=== PATIENT | male | born 1945 | race Caucasian/White ===

== ENCOUNTER 2019-05-23 12:16 | Inpatient (IN) | payer OTHER ==
[~2019-05-23] VITALS: Ht 175.3 cm; Wt 106.0 kg
[2019-05-23 12:42] LABS: BASOPHILS # (AUTO) 0.1 X10'3 (0-0.2); BASOPHILS % (AUTO) 1.3 % (0-1); EOSINOPHILS # (AUTO) 0.2 X10'3 (0-0.9); EOSINOPHILS % (AUTO) 2.7 % (0-6); HEMATOCRIT 41.1 % (42.0-52.0); HEMOGLOBIN 14.7 g/dl (14.0-17.9); LYMPHOCYTES # (AUTO) 1.1 X10'3 (1.1-4.8); LYMPHOCYTES % (AUTO) 15.3 % (21-51); MEAN CORPUSCULAR HEMOGLOBIN 33.2 PG (27.0-31.0); MEAN CORPUSCULAR HGB CONC 35.7 g/dL (33.0-36.5); MEAN CORPUSCULAR VOLUME 92.9 FL (78-98); MEAN PLATELET VOLUME 6.4 FL (7.4-10.4); MONOCYTES # (AUTO) 0.9 X10'3 (0-0.9); MONOCYTES % (AUTO) 12.2 % (2-12); NEUTROPHILS # (AUTO) 5.2 X10'3 (1.8-7.7); NEUTROPHILS % (AUTO) 68.5 % (42-75); PLATELET COUNT 160 X10'3 (140-440); RED BLOOD COUNT 4.43 X10'6 (4.70-6.10); RED CELL DISTRIBUTION WIDTH 13.5 % (11.5-14.5); WHITE BLOOD COUNT 7.5 X10'3 (4.5-11.0)
[2019-05-23 13:05] LABS: ALANINE AMINOTRANSFERASE 41 U/L (12-78); ALBUMIN 3.9 G/DL (3.4-5.0); ALBUMIN/GLOBULIN RATIO 1.2 (1.1-1.5); ALKALINE PHOSPHATASE 68 IU/L (46-116); ANION GAP 1 (8-16); ASPARTATE AMINO TRANSFERASE 23 U/L (10-37); BILIRUBIN,TOTAL 0.8 MG/DL (0.1-1.0); BLOOD UREA NITROGEN 12 MG/DL (7-18); BUN/CREATININE RATIO 15.6 (5.4-32.0); CALCIUM 8.7 MG/DL (8.5-10.1); CHLORIDE 98 MMOL/L (99-107); CREATININE 0.77 MG/DL (0.60-1.10); GLUCOSE 95 MG/DL (70-104); POTASSIUM 4.5 MMOL/L (3.5-5.1); SODIUM 132 MMOL/L (135-145); TOTAL CARBON DIOXIDE 32.7 MMOL/L (24-32); TOTAL PROTEIN 7.1 G/DL (6.4-8.2); eGFR > 90 ML/MIN
[2019-05-23] MEDS ORDERED: aspirin 81mg tab.chew PO ONE (13:25)
[2019-05-23] MEDS ORDERED: morphine 2 MG/ML inj. syringe IV ONE (13:25)
[2019-05-23] MEDS ORDERED: nitroGLYCERIN 0.4mg/hour patch TD ONE (13:25)
[2019-05-23] MEDS ORDERED: magnesium hydroxide 30ml (MOM) UD suspension PO PRN (13:45)
[2019-05-23] MEDS ORDERED: HYDROcodone/acetaminophen 5mg/325mg tablet PO PRN (13:45)
[2019-05-23] MEDS ORDERED: nitroGLYCERIN 0.4mg SUBLingual tab SL PRN (13:45)
[2019-05-23] MEDS ORDERED: morphine 2 MG/ML inj. syringe IV PRN ×2 (13:45)
[2019-05-23] MEDS ORDERED: ondansetron/PF 4mg/2ml inj IV PRN (13:45)
[2019-05-23] MEDS ORDERED: mag hydrox/Alum hydrox/simeth 30ml oral suspension PO PRN (13:45)
[2019-05-23] MEDS ORDERED: acetaminophen 325mg tablet PO PRN ×2 (13:45)
[2019-05-23] MEDS ORDERED: ATEN100T PO (14:10)
[2019-05-23] MEDS ORDERED: CLIN300C71 PO (14:10)
[2019-05-23] MEDS ORDERED: LOSA50TA64 PO (14:10)
[2019-05-23] MEDS ORDERED: CITA20TA27 PO (14:13)
[2019-05-23] MEDS ORDERED: ASPI-10 PO (14:13)
[2019-05-23] MEDS ORDERED: SIMV20TA PO (14:13)
[2019-05-23] MEDS ORDERED: CHOL100046 PO (14:13)
[2019-05-23] MEDS ORDERED: ALLO300T2 PO (14:13)
[2019-05-23] MEDS ORDERED: ACET-75 PO (14:16)
[2019-05-23 15:11] LABS: D-DIMER 0.58 MG/L FEU (0-0.50)
--- NOTE | 2019-05-23 15:15 | NUR ---
ARRIVED TO ROOM 311 ON ACCE UNIT FROM ER VIA [facility].
--- NOTE | 2019-05-23 15:45 | NUR ---
DR. KOCH ARRIVED FOR CONSULT. ORDERS RECEIVED. ECHO FIDENCIO JEFFRIES FOR TOMORROW, CANCEL LAST 2 TROPONINS LAB DRAWS.
[2019-05-23 15:50] VITALS: BP 131/59
[2019-05-23 16:17] VITALS: BP 162/75
--- NOTE | 2019-05-23 16:44 | NUR ---
Patient in room MED 311. I have received report from JORDAN Strong and had the opportunity to ask questions and assume patient care.
--- NOTE | 2019-05-23 16:44 | NUR ---
REPORT GIVEN TO KELLEE ORTEGA.
--- NOTE | 2019-05-23 17:00 | NUR ---
Reviewed and agree with previous nurse's documentation & physical assessment. Will continue to monitor patient closely.
[2019-05-23 18:00] VITALS: BP 180/86
--- NOTE | 2019-05-23 18:22 | NUR ---
Problems reprioritized. Patient report given, questions answered & plan of care reviewed with JORDAN Nagel.
--- NOTE | 2019-05-23 18:57 | NUR ---
Dr. Mcdonald assessed pt. had the opportunity to review POC. no new orders at the moment. to review med rec so pt can receive scheduled HTN medications.
--- NOTE | 2019-05-23 18:57 | NUR ---
received report from JORDAN Mcdermott
--- NOTE | 2019-05-23 18:57 | NUR ---
PAGER ID: [phone] MESSAGE: just finished report, pt311 Wolf Youngblood dx NSTEMI has been having high systolic throughout AM. current BP 180/86, prev: 173/80. med rec ready for review. thanks. ext. [phone]
[2019-05-23] MEDS ORDERED: allopurinol 300 MG tablet PO SCH (21:00)
[2019-05-23] MEDS ORDERED: non-formulary drug (Acetaminophen 1 TAB) PO PRN (21:40)
[2019-05-23] MEDS ORDERED: clindamycin 150mg capsule PO ONE (21:59)
[2019-05-23] MEDS: losartan 50mg tablet PO SCH (22:22)
[2019-05-23] MEDS: atenolol 50mg tablet PO SCH (22:22)
[2019-05-23 22:37] VITALS: BP 175/73
[2019-05-24] VITALS (21 sets, daily range): BP systolic 126–163; BP diastolic 52–74
[2019-05-24 06:25] LABS: ALBUMIN 3.6 G/DL (3.4-5.0); ANION GAP 8 (8-16); BLOOD UREA NITROGEN 9 MG/DL (7-18); BUN/CREATININE RATIO 11.5 (5.4-32.0); CALCIUM 8.9 MG/DL (8.5-10.1); CHLORIDE 100 MMOL/L (99-107); CHOL/HDL RATIO 2.7 (0.00-4.99); CHOLESTEROL 129 MG/DL (0-200); CREATININE 0.78 MG/DL (0.60-1.10); GLUCOSE 107 MG/DL (70-104); HDL CHOLESTEROL 47 MG/DL (35-60); LDL CHOLESTEROL 75 MG/DL (50-100); POTASSIUM 4.1 MMOL/L (3.5-5.1); SODIUM 134 MMOL/L (135-145); TRIGLYCERIDES 80 MG/DL (20-135); eGFR > 90 ML/MIN
[2019-05-24 07:00] LABS: BASOPHILS % (AUTO) 0.6 % (0-1); EOSINOPHILS # (AUTO) 0.1 X10'3 (0-0.9); EOSINOPHILS % (AUTO) 0.9 % (0-6); HEMATOCRIT 39.1 % (42.0-52.0); HEMOGLOBIN 13.9 g/dl (14.0-17.9); LYMPHOCYTES # (AUTO) 1.2 X10'3 (1.1-4.8); LYMPHOCYTES % (AUTO) 15.5 % (21-51); MEAN CORPUSCULAR HEMOGLOBIN 32.8 PG (27.0-31.0); MEAN CORPUSCULAR HGB CONC 35.4 g/dL (33.0-36.5); MEAN CORPUSCULAR VOLUME 92.7 FL (78-98); MEAN PLATELET VOLUME 6.7 FL (7.4-10.4); MONOCYTES # (AUTO) 0.7 X10'3 (0-0.9); MONOCYTES % (AUTO) 9.7 % (2-12); NEUTROPHILS # (AUTO) 5.5 X10'3 (1.8-7.7); NEUTROPHILS % (AUTO) 73.3 % (42-75); PLATELET COUNT 149 X10'3 (140-440); RED BLOOD COUNT 4.22 X10'6 (4.70-6.10); RED CELL DISTRIBUTION WIDTH 13.5 % (11.5-14.5); WHITE BLOOD COUNT 7.5 X10'3 (4.5-11.0)
[2019-05-24] MEDS ORDERED: aminophylline 250mg/10ml inj. IV PRN (08:00)
[2019-05-24] MEDS ORDERED: enoxaparin 40mg/0.4ml syringe SUBCUT SCH (08:00)
[2019-05-24] MEDS ORDERED: nitroGLYCERIN 0.4mg SUBLingual tab SL PRN (08:00)
[2019-05-24] MEDS ORDERED: regadenoson 0.4mg/5ml syringe IV PRN (08:00)
[2019-05-24] MEDS ORDERED: metoprolol tartrate 1mg/ml inj IV PRN (08:00)
--- NOTE | 2019-05-24 10:45 | NUR ---
Paged Dr. Mcdonald about Stress test result "Re: Kostasdonald, in 311. Lexiscan result is posted. Let me know if he can eat, and what the plan is. thank you, Suzy LEVY [phone]"
[2019-05-24] MEDS: losartan 50mg tablet PO SCH (11:01)
[2019-05-24] MEDS: vitamin D (cholecalciferol) 1,000 unit tablet PO SCH (11:01)
[2019-05-24] MEDS: citalopram 20mg tablet PO SCH (11:01)
[2019-05-24] MEDS: aspirin 81mg tablet.DR PO SCH (11:01)
[2019-05-24] MEDS: atenolol 50mg tablet PO SCH (11:02)
[2019-05-24] MEDS: allopurinol 300 MG tablet PO SCH (11:02)
--- NOTE | 2019-05-24 18:44 | NUR ---
Patient in room MED 311. I have received report from Suzy ORTEGA and had the opportunity to ask questions and assume patient care.
[2019-05-24] MEDS: enoxaparin 100mg/ml syringe SUBCUT SCH (19:35)
[2019-05-24] MEDS: atorvastatin 10mg tablet PO SCH (20:14)
[2019-05-25] VITALS (13 sets, daily range): BP systolic 107–170; BP diastolic 61–86
[2019-05-25 03:21] LABS: ALBUMIN 3.7 G/DL (3.4-5.0); ANION GAP 5 (8-16); BLOOD UREA NITROGEN 13 MG/DL (7-18); BUN/CREATININE RATIO 16.5 (5.4-32.0); CALCIUM 8.8 MG/DL (8.5-10.1); CHLORIDE 98 MMOL/L (99-107); CREATININE 0.79 MG/DL (0.60-1.10); GLUCOSE 96 MG/DL (70-104); POTASSIUM 3.7 MMOL/L (3.5-5.1); SODIUM 134 MMOL/L (135-145); TOTAL CARBON DIOXIDE 30.6 MMOL/L (24-32); eGFR > 90 ML/MIN
[2019-05-25 03:53] LABS: BASOPHILS # (AUTO) 0.1 X10'3 (0-0.2); BASOPHILS % (AUTO) 1.6 % (0-1); EOSINOPHILS # (AUTO) 0.1 X10'3 (0-0.9); EOSINOPHILS % (AUTO) 1.9 % (0-6); HEMATOCRIT 39.9 % (42.0-52.0); HEMOGLOBIN 14.1 g/dl (14.0-17.9); LYMPHOCYTES # (AUTO) 1.4 X10'3 (1.1-4.8); LYMPHOCYTES % (AUTO) 20.2 % (21-51); MEAN CORPUSCULAR HEMOGLOBIN 32.9 PG (27.0-31.0); MEAN CORPUSCULAR HGB CONC 35.3 g/dL (33.0-36.5); MEAN CORPUSCULAR VOLUME 93.3 FL (78-98); MONOCYTES # (AUTO) 0.9 X10'3 (0-0.9); MONOCYTES % (AUTO) 12.2 % (2-12); NEUTROPHILS # (AUTO) 4.5 X10'3 (1.8-7.7); NEUTROPHILS % (AUTO) 64.1 % (42-75); PLATELET COUNT 144 X10'3 (140-440); RED BLOOD COUNT 4.28 X10'6 (4.70-6.10); RED CELL DISTRIBUTION WIDTH 13.5 % (11.5-14.5); WHITE BLOOD COUNT 7.1 X10'3 (4.5-11.0)
[2019-05-25] MEDS ORDERED: normal saline 1000ml 1,000 ML IV SCH ×2 (04:00→14:55)
--- NOTE | 2019-05-25 06:20 | NUR ---
Problems reprioritized. Patient report given, questions answered & plan of care reviewed with Dai Murdock.
--- NOTE | 2019-05-25 06:27 | NUR ---
Patient in room MED 311. I have received report from JORDAN Cabral and had the opportunity to ask questions and assume patient care.
[2019-05-25] MEDS: allopurinol 300 MG tablet PO SCH (07:00)
[2019-05-25] MEDS: citalopram 20mg tablet PO SCH (08:50)
[2019-05-25] MEDS: enoxaparin 100mg/ml syringe SUBCUT SCH (08:50)
[2019-05-25] MEDS: atenolol 50mg tablet PO SCH (08:51)
[2019-05-25] MEDS: vitamin D (cholecalciferol) 1,000 unit tablet PO SCH (08:51)
--- NOTE | 2019-05-25 10:00 | NUR ---
Dr. Gaitan called back regarding patient's medications, with regard to holding his ARB and the low-dose asa. Dr. Gaitan stated that there are no medications are to be held for this patient.
[2019-05-25] MEDS: losartan 50mg tablet PO SCH ×2 (11:44→20:35)
[2019-05-25] MEDS: aspirin 81mg tablet.DR PO SCH (11:44)
[2019-05-25] MEDS ORDERED: iohexol 350 MG/ML 50ML vial IV ONE (13:38)
[2019-05-25] MEDS ORDERED: LIDOcaine 1% (10mg/ml)w/preservative injection 20ml MDV ONE (13:38)
[2019-05-25] MEDS ORDERED: iohexol 350MG/ML 100ml bottle IV ONE (13:38)
[2019-05-25] MEDS ORDERED: fentaNYL/PF 50MCG/1 ML 2ML syringe ONE ×2 (13:48→14:19)
[2019-05-25] MEDS ORDERED: midazolam 2 mg/2 ml injection ONE ×2 (13:48→14:19)
[2019-05-25] MEDS ORDERED: nitroGLYCERIN-Tridil 50MG/D5W 250 ML IV ONE (14:06)
[2019-05-25] MEDS ORDERED: enalaprilat dihydrate 2.5mg/2ml vial IV ONE (14:08)
--- NOTE | 2019-05-25 14:35 | NUR ---
pt. left for heart cath at 1345 and came back on the unit at 1435.
[2019-05-25] MEDS ORDERED: OXAZEpam 15mg capsule PO PRN (14:55)
[2019-05-25] MEDS ORDERED: HYDROcodone/acetaminophen 10/325mg tab PO PRN (14:55)
[2019-05-25] MEDS ORDERED: ondansetron/PF 4mg/2ml inj IV PRN (14:55)
[2019-05-25] MEDS ORDERED: HYDROcodone/acetaminophen 5mg/325mg tablet PO PRN (14:55)
[2019-05-25] MEDS ORDERED: proCHLORperazine 10 MG/2 ml inj IV PRN (14:55)
[2019-05-25] MEDS: amLODIPine 2.5mg tablet PO SCH (15:29)
[2019-05-25] MEDS ORDERED: Insulin Reg/NS 100units/100mL 100 ML IV SCH (15:33)
[2019-05-25] MEDS ORDERED: potassium Cl 20mEq/100mL bag 100 ML IV PRN (15:35)
[2019-05-25] MEDS ORDERED: magnesium 4gm in 100ml NS 100 ML IV PRN (15:35)
[2019-05-25] MEDS ORDERED: insulin glargine (Lantus) pen - multi-dose SQ PRN (15:35)
[2019-05-25] MEDS ORDERED: magnesium 2GM in 50ml NS 50 ML IV PRN (15:35)
[2019-05-25] MEDS ORDERED: potassium Cl 20 mEq SR tablet PO PRN (15:35)
[2019-05-25] MEDS ORDERED: dextrose 50%-water 50ml dispensing syringe IV PRN (15:35)
[2019-05-25] MEDS ORDERED: MESSAGE TO NURSING PO ONE ×4 (15:35)
[2019-05-25 16:16] LABS: PARTIAL THROMBOPLASTIN TIME 36 SECONDS (22-32)
--- NOTE | 2019-05-25 16:30 | NUR ---
Repiratory-pt Spinner, on ACCE rm 311, orders for ABGs and PFTs, still recovering from heart cath. Testing may done during NOC shift, 05/25/19. Thank you, Brady Can RN
--- NOTE | 2019-05-25 18:00 | NUR ---
Patient in room MED 311. I have received report from JT ORTEGA and had the opportunity to ask questions and assume patient care.
--- NOTE | 2019-05-25 18:33 | NUR ---
Problems reprioritized. Patient report given, questions answered & plan of care reviewed with JORDAN Regan.
[2019-05-25] MEDS: atorvastatin 10mg tablet PO SCH (20:35)
[2019-05-26] VITALS (7 sets, daily range): BP systolic 110–166; BP diastolic 61–87
[2019-05-26 00:14] LABS: CLARITY,URINE CLEAR (Clear); COLOR,URINE YELLOW (Yellow); GLUCOSE, URINE NEGATIVE (Neg); KETONES,URINE NEGATIVE (Neg); LEUKOCYTE ESTERASE ,URINE NEGATIVE (Neg); NITRITES, URINE NEGATIVE (Neg); OCCULT BLOOD,URINE TRACE-INTACT (Neg); PROTEIN,URINE NEGATIVE (Neg); UA COLLECTION TYPE CLN CATCH MIDSTREAM; UROBILINOGEN,URINE 0.2 E.U/dL (0.2-1.0)
[2019-05-26 00:42] LABS: RBC,URINE 0-2 /HPF (0-2); WBC,URINE NONE SEEN /HPF (0-4)
[2019-05-26 00:43] LABS: BACTERIA,URINE NONE SEEN /HPF (Neg); MUCUS STRANDS NONE SEEN /LPF (Neg); SQUAMOUS EPITHELIAL CELL,UR FEW /LPF (FEW)
[2019-05-26 05:33] LABS: ALBUMIN 3.3 G/DL (3.4-5.0); ANION GAP 7 (8-16); BLOOD UREA NITROGEN 12 MG/DL (7-18); BUN/CREATININE RATIO 16.7 (5.4-32.0); CALCIUM 8.7 MG/DL (8.5-10.1); CHLORIDE 99 MMOL/L (99-107); CREATININE 0.72 MG/DL (0.60-1.10); GLUCOSE 89 MG/DL (70-104); POTASSIUM 3.6 MMOL/L (3.5-5.1); SODIUM 135 MMOL/L (135-145); TOTAL CARBON DIOXIDE 29.5 MMOL/L (24-32); eGFR > 90 ML/MIN
--- NOTE | 2019-05-26 06:48 | NUR ---
Patient in room MED 311. I have received report from JORDAN Regan and had the opportunity to ask questions and assume patient care.
--- NOTE | 2019-05-26 06:49 | NUR ---
Problems reprioritized. Patient report given, questions answered & plan of care reviewed with Dai ORTEGA.
[2019-05-26 07:07] LABS: BASOPHILS # (AUTO) 0.1 X10'3 (0-0.2); BASOPHILS % (AUTO) 1.2 % (0-1); EOSINOPHILS # (AUTO) 0.1 X10'3 (0-0.9); EOSINOPHILS % (AUTO) 1.2 % (0-6); LYMPHOCYTES # (AUTO) 1.6 X10'3 (1.1-4.8); LYMPHOCYTES % (AUTO) 21.9 % (21-51); MONOCYTES # (AUTO) 0.9 X10'3 (0-0.9); MONOCYTES % (AUTO) 12.1 % (2-12); NEUTROPHILS # (AUTO) 4.6 X10'3 (1.8-7.7); NEUTROPHILS % (AUTO) 63.6 % (42-75); RED CELL DISTRIBUTION WIDTH 13.3 % (11.5-14.5)
[2019-05-26 07:32] LABS: HEMATOCRIT 41.7 % (42.0-52.0); HEMOGLOBIN 14.4 g/dl (14.0-17.9); MEAN CORPUSCULAR VOLUME 99.8 FL (78-98); RED BLOOD COUNT 4.18 X10'6 (4.70-6.10); WHITE BLOOD COUNT 7.4 X10'3 (4.5-11.0)
[2019-05-26 07:33] LABS: MEAN CORPUSCULAR HEMOGLOBIN 34.4 PG (27.0-31.0); MEAN CORPUSCULAR HGB CONC 34.5 g/dL (33.0-36.5); PLATELET COUNT 144 X10'3 (140-440)
[2019-05-26] MEDS: amLODIPine 2.5mg tablet PO SCH (07:45)
[2019-05-26] MEDS: citalopram 20mg tablet PO SCH (07:46)
[2019-05-26] MEDS: aspirin 81mg tablet.DR PO SCH (07:46)
[2019-05-26] MEDS: losartan 50mg tablet PO SCH ×2 (07:46→20:55)
[2019-05-26] MEDS: allopurinol 300 MG tablet PO SCH (07:46)
[2019-05-26] MEDS: vitamin D (cholecalciferol) 1,000 unit tablet PO SCH (07:46)
[2019-05-26] MEDS: atenolol 50mg tablet PO SCH (07:47)
[2019-05-26] MEDS: mupirocin 2% nasal ointment 1gm UD NS SCH ×3 (08:00→20:55)
--- NOTE | 2019-05-26 08:45 | NUR ---
RADIOLOGY PAGED: 311: ANANER - IN ANTHONY READY FOR 2 VIEW :D
[2019-05-26] MEDS ORDERED: MESSAGE TO NURSING PO ONE (10:00)
[2019-05-26 16:51] LABS: ABG BASE EXCESS 0.6 mmol/L (-2.0-3.0); ABG HCO3 24.5 mmol/L (22.0-26.0); ABG OXYGEN SATURATION 94.6 % (95-98); ABG PCO2 (T) 37.4 mmHg (35.0-45.0); ABG PH (T) 7.435 (7.350-7.450); ABG PO2 (T) 69.5 mmHg (83-108); ALLEN'S TEST POSITIVE; FCOHb 1.1 % (0.5-1.5); FMetHb 0.2 % (0.3-1.12); FO2Hb 93.4 % (94-100); TOTAL HEMOGLOBIN 14.5 G/dl (14.0-17.9)
--- NOTE | 2019-05-26 18:47 | NUR ---
Problems reprioritized. Patient report given, questions answered & plan of care reviewed with JORDAN Cabral.
--- NOTE | 2019-05-26 19:24 | NUR ---
Patient in room MED 311. I have received report from Dai ORTEGA and had the opportunity to ask questions and assume patient care.
[2019-05-26] MEDS: atorvastatin 10mg tablet PO SCH (20:55)
--- NOTE | 2019-05-26 21:00 | NUR ---
Administered dose of bactroban to patient. [facility] did not register that it was given although it has a time stamp for the dose administration. Non administered dose in order to clear task list.
[2019-05-27] VITALS (9 sets, daily range): BP systolic 103–180; BP diastolic 53–84
[2019-05-27 05:26] LABS: ALBUMIN 3.5 G/DL (3.4-5.0); ANION GAP 6 (8-16); BLOOD UREA NITROGEN 10 MG/DL (7-18); BUN/CREATININE RATIO 12.5 (5.4-32.0); CALCIUM 8.7 MG/DL (8.5-10.1); CHLORIDE 101 MMOL/L (99-107); GLUCOSE 97 MG/DL (70-104); POTASSIUM 3.6 MMOL/L (3.5-5.1); SODIUM 135 MMOL/L (135-145); TOTAL CARBON DIOXIDE 28.3 MMOL/L (24-32); eGFR > 90 ML/MIN
[2019-05-27 06:33] LABS: BASOPHILS # (AUTO) 0.1 X10'3 (0-0.2); BASOPHILS % (AUTO) 1.2 % (0-1); EOSINOPHILS # (AUTO) 0.1 X10'3 (0-0.9); EOSINOPHILS % (AUTO) 2.2 % (0-6); HEMATOCRIT 37.9 % (42.0-52.0); HEMOGLOBIN 13.7 g/dl (14.0-17.9); LYMPHOCYTES # (AUTO) 1.5 X10'3 (1.1-4.8); LYMPHOCYTES % (AUTO) 24.6 % (21-51); MEAN CORPUSCULAR HEMOGLOBIN 33.3 PG (27.0-31.0); MEAN CORPUSCULAR HGB CONC 36.1 g/dL (33.0-36.5); MEAN CORPUSCULAR VOLUME 92.1 FL (78-98); MEAN PLATELET VOLUME 6.8 FL (7.4-10.4); MONOCYTES # (AUTO) 0.9 X10'3 (0-0.9); NEUTROPHILS # (AUTO) 3.6 X10'3 (1.8-7.7); PLATELET COUNT 138 X10'3 (140-440); RED BLOOD COUNT 4.11 X10'6 (4.70-6.10); RED CELL DISTRIBUTION WIDTH 13.5 % (11.5-14.5); WHITE BLOOD COUNT 6.2 X10'3 (4.5-11.0)
--- NOTE | 2019-05-27 06:42 | NUR ---
Problems reprioritized. Patient report given, questions answered & plan of care reviewed with Pat RN.
[2019-05-27 07:15] LABS: PLATELET ESTIMATE DECREASED; POLYCHROMASIA FEW
[2019-05-27 07:16] LABS: BURR CELLS FEW; SPHEROCYTES FEW
[2019-05-27] MEDS: mupirocin 2% nasal ointment 1gm UD NS SCH (07:41)
[2019-05-27] MEDS: amLODIPine 2.5mg tablet PO SCH (07:41)
[2019-05-27] MEDS: aspirin 81mg tablet.DR PO SCH (07:41)
[2019-05-27] MEDS: vitamin D (cholecalciferol) 1,000 unit tablet PO SCH (07:41)
[2019-05-27] MEDS: losartan 50mg tablet PO SCH ×2 (07:41→19:35)
[2019-05-27] MEDS: citalopram 20mg tablet PO SCH (07:41)
[2019-05-27] MEDS: allopurinol 300 MG tablet PO SCH (07:44)
[2019-05-27] MEDS: atenolol 50mg tablet PO SCH (08:00)
[2019-05-27] MEDS ORDERED: hydrALAZINE 20mg/ml inj. IV PRN (08:25)
[2019-05-27] MEDS ORDERED: vancomycin/NS 1 GM ADD-VANTAGE 250 ML IV ONE (09:35)
[2019-05-27] MEDS ORDERED: cefazolin/dext.iso 2gm/50ml 50 ML IV ONE (09:35)
[2019-05-27] MEDS ORDERED: MESSAGE TO NURSING PO ONE ×3 (09:35→17:11)
--- NOTE | 2019-05-27 10:48 | NUR ---
PHONED ADAM Avila , AND APPRISED HIM THAT PATIENT STATED " HE HAD HIVES AFTER TAKING PENICILLIN." Addendum: 05/27/19 at 1055 by Teresa Farah RN Amended: Links added.
[2019-05-27] MEDS ORDERED: ringers solution, lacted 1,000 ML IV ONE (14:49)
--- NOTE | 2019-05-27 19:01 | NUR ---
Patient in room MED 311. I have received report from Meera RN and had the opportunity to ask questions and assume patient care.
[2019-05-27] MEDS: metoprolol tartrate 12.5mg (1/2 tablet) PO SCH (19:34)
[2019-05-27] MEDS: nitroGLYCERIN 0.4mg SUBLingual tab SL PRN ×2 (19:43→19:55)
[2019-05-27] MEDS ORDERED: mupirocin 2% ointment 22GM NS SCH (20:00)
[2019-05-27] MEDS: atorvastatin 10mg tablet PO SCH (21:03)
[2019-05-27] MEDS ORDERED: metoprolol tartrate 12.5mg (1/2 tablet) PO ONE (21:25)
--- NOTE | 2019-05-27 21:28 | NUR ---
Olegario BOWERS notifed r/t chest pain 05/28. nitro sub leatha administered at 1938 x2. chest pain relieved. BP currently 152/62, HR 67. new order. give additional 12.5 mg metoprolol.
[2019-05-28] VITALS (19 sets, daily range): BP systolic 97–167; BP diastolic 40–72
--- NOTE | 2019-05-28 00:15 | NUR ---
Spoke with Jose in blood bank. Patient's blood products are ready and on hold for surgery in AM.
[2019-05-28] MEDS ORDERED: MESSAGE TO NURSING PO ONE (02:00)
[2019-05-28 02:35] LABS: ALBUMIN 3.6 G/DL (3.4-5.0); ANION GAP 5 (8-16); BLOOD UREA NITROGEN 13 MG/DL (7-18); BUN/CREATININE RATIO 17.8 (5.4-32.0); CALCIUM 9.1 MG/DL (8.5-10.1); CHLORIDE 100 MMOL/L (99-107); CREATININE 0.73 MG/DL (0.60-1.10); GLUCOSE 102 MG/DL (70-104); POTASSIUM 3.6 MMOL/L (3.5-5.1); SODIUM 133 MMOL/L (135-145); TOTAL CARBON DIOXIDE 27.7 MMOL/L (24-32); eGFR > 90 ML/MIN
[2019-05-28 04:23] LABS: BASOPHILS # (AUTO) 0.1 X10'3 (0-0.2); BASOPHILS % (AUTO) 0.9 % (0-1); EOSINOPHILS # (AUTO) 0.2 X10'3 (0-0.9); EOSINOPHILS % (AUTO) 2.7 % (0-6); HEMATOCRIT 40.6 % (42.0-52.0); HEMOGLOBIN 14.6 g/dl (14.0-17.9); LYMPHOCYTES # (AUTO) 1.9 X10'3 (1.1-4.8); LYMPHOCYTES % (AUTO) 28.8 % (21-51); MEAN CORPUSCULAR HEMOGLOBIN 33.4 PG (27.0-31.0); MEAN CORPUSCULAR HGB CONC 35.9 g/dL (33.0-36.5); MEAN CORPUSCULAR VOLUME 93.1 FL (78-98); MEAN PLATELET VOLUME 6.8 FL (7.4-10.4); MONOCYTES # (AUTO) 0.9 X10'3 (0-0.9); MONOCYTES % (AUTO) 13.8 % (2-12); NEUTROPHILS # (AUTO) 3.6 X10'3 (1.8-7.7); NEUTROPHILS % (AUTO) 53.8 % (42-75); PLATELET COUNT 146 X10'3 (140-440); RED BLOOD COUNT 4.36 X10'6 (4.70-6.10); RED CELL DISTRIBUTION WIDTH 13.5 % (11.5-14.5); WHITE BLOOD COUNT 6.7 X10'3 (4.5-11.0)
[2019-05-28] MEDS ORDERED: gabapentin 400mg capsule PO ONE (05:00)
[2019-05-28] MEDS ORDERED: mupirocin 2% nasal ointment 1gm UD NS SCH (05:00)
[2019-05-28] MEDS ORDERED: MALTODEXTRIN/FRUCTOSE 0.68 KCAL/ML LIQUID 296ML BOTTLE PO ONE (05:00)
[2019-05-28] MEDS ORDERED: ROPIVAcaine 0.5% (5mg/ml) 30ml vial ONE (05:18)
[2019-05-28] MEDS ORDERED: sodium bicarbonate (8.4%) inj. 1 MEQ/ML ML ONE (06:00)
[2019-05-28] MEDS ORDERED: albumin (human) 25% 100 ML IV solution IV ONE (06:00)
[2019-05-28] MEDS ORDERED: LORazepam 2 mg/ml vial IV ONE (06:00)
[2019-05-28] MEDS ORDERED: phenylephrine 10mg/ml inj. ONE ×2 (06:00→07:41)
[2019-05-28] MEDS ORDERED: aminocaproic acid 250 MG/1 ML inj. ONE (06:00)
[2019-05-28] MEDS ORDERED: methylPREDNISolone sod succ 1000mg vial ONE (06:00)
[2019-05-28] MEDS ORDERED: magnesium sulf 1 GM/2 ML ONE (06:00)
[2019-05-28] MEDS ORDERED: papaverine 30 mg/ml 2ml inj. ONE (06:00)
[2019-05-28] MEDS ORDERED: famotidine 20mg tablet PO ONE (06:00)
[2019-05-28] MEDS ORDERED: calcium chloride 100 MG/1 ML inj IV ONE (06:00)
[2019-05-28] MEDS ORDERED: potassium Cl 2 mEq/ml inj IV ONE (06:00)
[2019-05-28] MEDS ORDERED: LIDOcaine 2% (20 mg/ml) 5ml cardiac syringe ONE (06:00)
[2019-05-28] MEDS ORDERED: cefazolin/dext.iso 2gm/50ml 50 ML IV ONE (06:00)
[2019-05-28] MEDS ORDERED: vancomycin/NS 1 GM ADD-VANTAGE 250 ML IV ONE (06:00)
[2019-05-28] MEDS ORDERED: heparin 10,000 units/1 ML INJ ONE (06:00)
[2019-05-28] MEDS ORDERED: heparin 1,000 units/ml 10ml inj ONE (06:00)
--- NOTE | 2019-05-28 06:00 | NUR ---
Patient in room MED 311. I have received report from Scott ORTEGA and had the opportunity to ask questions and assume patient care.
[2019-05-28 06:02] LABS: PLATELET ESTIMATE NORMAL; SPHEROCYTES 1+
--- NOTE | 2019-05-28 06:11 | NUR ---
Problems reprioritized. Patient report given, questions answered & plan of care reviewed with Emmanuel ORTEGA.
[2019-05-28] MEDS ORDERED: sevoflurane 250ml liquid IH ONE (06:40)
[2019-05-28] MEDS ORDERED: nitroGLYCERIN in D5W 50mg/250ml (Tridil) infusion IV ONE (06:40)
[2019-05-28] MEDS ORDERED: niCARDipine in NS 40mg/200ml (0.2mg/ml) IVPB IV ONE (06:40)
[2019-05-28] MEDS ORDERED: protamine sulf. 10mg/ml inj. IV ONE (06:40)
--- NOTE | 2019-05-28 06:44 | NUR ---
Pt. ready for CABG. Pt. spoke with OR team this morning and all questions answered. OR team arrived around 620. Pepcid and Ativan given and Vanco started. Pt. left with OR team.
[2019-05-28] MEDS ORDERED: SUFENTANIL CITRATE 50 MCG/ML 2ml ampule IV ONE (06:48)
[2019-05-28] MEDS ORDERED: MIDAZolam 1mg/ml 10ml vial ONE (06:48)
[2019-05-28] MEDS ORDERED: rocuronium 10mg/ml inj IV ONE ×2 (06:58)
[2019-05-28] MEDS ORDERED: LIDOcaine 2% (20mg/ml) 5ml vial ONE (06:58)
[2019-05-28] MEDS ORDERED: propofol inj 20 ML IV ONE (06:58)
[2019-05-28] MEDS: allopurinol 300 MG tablet PO SCH (07:00)
[2019-05-28 07:20] LABS: ABG BASE EXCESS -0.1 mmol/L (-2.0-3.0); ABG HCO3 25.8 mmol/L (22.0-26.0); ABG PCO2 46.5 mmHg (35.0-45.0); ABG PH 7.362 (7.350-7.450); ABG PO2 168.2 mmHg (60.0-100.0); CL (ABG) 101 mmol/L (99-107); FCOHb 1.3 % (0.5-1.5); FMetHb 0.3 % (0.3-1.12); FO2Hb 97.4 % (94-100); GLUCOSE (ABG) 110 mg/dl (70-104); IONIZED CA (ABG) 1.13 mmol/L (1.03-1.32); K (ABG) 3.2 mmol/L (3.3-5.1); NA (ABG) 136 mmol/L (135-145); TOTAL HEMOGLOBIN 14.3 G/dl (14.0-17.9)
[2019-05-28] MEDS ORDERED: ePHEDrine 50MG/ML INJ. ONE (07:40)
[2019-05-28] MEDS ORDERED: heparin 10,000 units/1 ML INJ IR ONE (07:47)
[2019-05-28] MEDS ORDERED: papaverine 30 mg/ml 2ml inj. IA ONE (07:47)
[2019-05-28] MEDS: losartan 50mg tablet PO SCH (08:00)
[2019-05-28] MEDS: aspirin 81mg tablet.DR PO SCH (08:00)
[2019-05-28] MEDS: metoprolol tartrate 12.5mg (1/2 tablet) PO SCH (08:00)
[2019-05-28] MEDS: amLODIPine 2.5mg tablet PO SCH (08:00)
[2019-05-28] MEDS: atenolol 50mg tablet PO SCH (08:00)
[2019-05-28] MEDS: vitamin D (cholecalciferol) 1,000 unit tablet PO SCH (08:00)
[2019-05-28] MEDS: citalopram 20mg tablet PO SCH (08:00)
[2019-05-28 08:15] LABS: ABG BASE EXCESS VENOUS -0.6 mmol/L; ABG HCO3 VENOUS 26.6 mmol/L; ABG PCO2 VENOUS 54.5 mmHg; ABG PO2 VENOUS 42.8 mmHg; CL (ABG) 98 mmol/L (99-107); FCOHb VENOUS 1.4 %; FHHb VENOUS 25.2 %; FMetHb VENOUS 0.4 %; GLUCOSE (ABG) 110 mg/dl (70-104); IONIZED CA (ABG) 1.15 mmol/L (1.03-1.32); K (ABG) 3.5 mmol/L (3.3-5.1); NA (ABG) 132 mmol/L (135-145); TOTAL HEMOGLOBIN 13.8 G/dl (14.0-17.9)
[2019-05-28 08:41] LABS: ABG HCO3 VENOUS 25.7 mmol/L; ABG PCO2 VENOUS 46.5 mmHg; ABG PO2 VENOUS 56.4 mmHg; CL (ABG) 97 mmol/L (99-107); FCOHb VENOUS 0.8 %; FHHb VENOUS 12.7 %; FMetHb VENOUS 0.3 %; FO2Hb VENOUS 86.2 %; GLUCOSE (ABG) 99 mg/dl (70-104); K (ABG) 4.8 mmol/L (3.3-5.1); NA (ABG) 130 mmol/L (135-145); TOTAL HEMOGLOBIN 10.6 G/dl (14.0-17.9)
[2019-05-28 08:46] LABS: ABG HCO3 27.2 mmol/L (22.0-26.0); ABG OXYGEN SATURATION 99.4 % (95-98); ABG PCO2 45.5 mmHg (35.0-45.0); ABG PH 7.395 (7.350-7.450); ABG PO2 417.8 mmHg (60.0-100.0); CL (ABG) 98 mmol/L (99-107); FCOHb 0.9 % (0.5-1.5); FMetHb 0.3 % (0.3-1.12); FO2Hb 98.2 % (94-100); GLUCOSE (ABG) 102 mg/dl (70-104); IONIZED CA (ABG) 0.99 mmol/L (1.03-1.32); K (ABG) 4.6 mmol/L (3.3-5.1); NA (ABG) 129 mmol/L (135-145); TOTAL HEMOGLOBIN 10.7 G/dl (14.0-17.9)
[2019-05-28 09:15] LABS: ABG BASE EXCESS 0.4 mmol/L (-2.0-3.0); ABG OXYGEN SATURATION 99.2 % (95-98); ABG PCO2 40.2 mmHg (35.0-45.0); ABG PH 7.411 (7.350-7.450); ABG PO2 277.8 mmHg (60.0-100.0); CL (ABG) 99 mmol/L (99-107); FCOHb 0.8 % (0.5-1.5); FMetHb 0.3 % (0.3-1.12); FO2Hb 98.1 % (94-100); GLUCOSE (ABG) 113 mg/dl (70-104); IONIZED CA (ABG) 1.04 mmol/L (1.03-1.32); K (ABG) 4.4 mmol/L (3.3-5.1); NA (ABG) 131 mmol/L (135-145); TOTAL HEMOGLOBIN 11.5 G/dl (14.0-17.9)
[2019-05-28 09:41] LABS: ABG BASE EXCESS 2.5 mmol/L (-2.0-3.0); ABG HCO3 26.1 mmol/L (22.0-26.0); ABG PCO2 36.8 mmHg (35.0-45.0); ABG PH 7.469 (7.350-7.450); ABG PO2 246.3 mmHg (60.0-100.0); CL (ABG) 97 mmol/L (99-107); FCOHb 0.6 % (0.5-1.5); FMetHb 0.2 % (0.3-1.12); FO2Hb 98.2 % (94-100); GLUCOSE (ABG) 117 mg/dl (70-104); K (ABG) 4.5 mmol/L (3.3-5.1); NA (ABG) 130 mmol/L (135-145); TOTAL HEMOGLOBIN 10.9 G/dl (14.0-17.9)
[2019-05-28 10:16] LABS: ABG BASE EXCESS VENOUS 1.7 mmol/L; ABG HCO3 VENOUS 26.4 mmol/L; ABG PO2 VENOUS 40.1 mmHg; CL (ABG) 99 mmol/L (99-107); FCOHb VENOUS 1.2 %; FHHb VENOUS 24.3 %; FMetHb VENOUS 0.6 %; FO2Hb VENOUS 73.9 %; GLUCOSE (ABG) 127 mg/dl (70-104); NA (ABG) 132 mmol/L (135-145); TOTAL HEMOGLOBIN 11.9 G/dl (14.0-17.9)
[2019-05-28] MEDS ORDERED: Insulin Reg/NS 100units/100mL 100 ML IV SCH (11:01)
[2019-05-28] MEDS ORDERED: DOPamine 400mg/D5W 250ml 250 ML IV PRN ×2 (11:01→11:13)
[2019-05-28] MEDS ORDERED: nitroGLYCERIN-Tridil 50MG/D5W 250 ML IV PRN (11:01)
[2019-05-28] MEDS ORDERED: niCARDipine-NS 40mg/200ml IVPB 200 ML IV PRN (11:01)
[2019-05-28] MEDS ORDERED: Neutra Phos packet PO PRN (11:05)
[2019-05-28] MEDS ORDERED: sodium phosphate inj. 15 MMOL in dextrose 5%-water 250 ML IV PRN (11:05)
[2019-05-28] MEDS ORDERED: dextrose 50%-water 50ml dispensing syringe IV PRN (11:05)
[2019-05-28] MEDS ORDERED: magnesium citrate 296ml oral solution PO PRN (11:05)
[2019-05-28] MEDS ORDERED: morphine 4 MG/ML inj SYRINge IV PRN ×2 (11:05)
[2019-05-28] MEDS ORDERED: mineral oil 133ml enema RC PRN (11:05)
[2019-05-28] MEDS ORDERED: magnesium hydroxide 30ml (MOM) UD suspension PO PRN (11:05)
[2019-05-28] MEDS ORDERED: HYDROcodone/acetaminophen 10/325mg tab PO PRN ×2 (11:05)
[2019-05-28] MEDS ORDERED: metoclopramide 5 mg/ml inj IV PRN (11:05)
[2019-05-28] MEDS ORDERED: bisacodyl 10mg suppository rectal RC PRN (11:05)
[2019-05-28] MEDS ORDERED: sodium phosphate inj. 30 MMOL in dextrose 5%-water 250 ML IV PRN (11:05)
[2019-05-28] MEDS ORDERED: acetaminophen 325mg tablet PO PRN ×2 (11:05)
[2019-05-28] MEDS ORDERED: insulin glargine (Lantus) pen - multi-dose SQ PRN (11:05)
[2019-05-28] MEDS ORDERED: ondansetron/PF 4mg/2ml inj IV PRN (11:05)
[2019-05-28] MEDS ORDERED: normal saline 250ml IV soln 250 ML IV PRN (11:05)
[2019-05-28] MEDS ORDERED: pantoprazole 40 MG vial IV ONE (11:05)
[2019-05-28] MEDS: albumin (Human) 5% 250ml 250 ML IV PRN ×4 (11:15→19:27)
[2019-05-28] MEDS: sodium chloride 0.45% 1,000 ML IV SCH (11:20)
[2019-05-28 11:35] LABS: BASOPHILS % (AUTO) 0.1 % (0-1); EOSINOPHILS % (AUTO) 0.2 % (0-6); HEMATOCRIT 39.6 % (42.0-52.0); HEMOGLOBIN 14.1 g/dl (14.0-17.9); LYMPHOCYTES # (AUTO) 0.6 X10'3 (1.1-4.8); LYMPHOCYTES % (AUTO) 4.1 % (21-51); MEAN CORPUSCULAR HEMOGLOBIN 33.3 PG (27.0-31.0); MEAN CORPUSCULAR HGB CONC 35.7 g/dL (33.0-36.5); MEAN CORPUSCULAR VOLUME 93.2 FL (78-98); MEAN PLATELET VOLUME 6.7 FL (7.4-10.4); MONOCYTES # (AUTO) 0.5 X10'3 (0-0.9); MONOCYTES % (AUTO) 3.3 % (2-12); NEUTROPHILS # (AUTO) 13.5 X10'3 (1.8-7.7); NEUTROPHILS % (AUTO) 92.3 % (42-75); PLATELET COUNT 127 X10'3 (140-440); RED BLOOD COUNT 4.25 X10'6 (4.70-6.10); RED CELL DISTRIBUTION WIDTH 13.5 % (11.5-14.5); WHITE BLOOD COUNT 14.7 X10'3 (4.5-11.0)
[2019-05-28 11:36] LABS: ABG BASE EXCESS -1.4 mmol/L (-2.0-3.0); ABG HCO3 24.1 mmol/L (22.0-26.0); ABG OXYGEN SATURATION 92.7 % (95-98); ABG PCO2 (T) 43.4 mmHg (35.0-45.0); ABG PH (T) 7.362 (7.350-7.450); ABG PO2 (T) 67.3 mmHg (83-108); FCOHb 0.7 % (0.5-1.5); FMetHb 0.3 % (0.3-1.12); FO2Hb 91.8 % (94-100); PEEP 5 cm H2O; RESPIRATORY RATE 12 b/min; TIDAL VOLUME 650 mL; TOTAL HEMOGLOBIN 14.9 G/dl (14.0-17.9)
[2019-05-28 11:48] LABS: PARTIAL THROMBOPLASTIN TIME 37 SECONDS (22-32)
[2019-05-28 11:51] LABS: ALANINE AMINOTRANSFERASE 32 U/L (12-78); ALBUMIN 3.2 G/DL (3.4-5.0); ALBUMIN/GLOBULIN RATIO 1.4 (1.1-1.5); ALKALINE PHOSPHATASE 44 IU/L (46-116); ANION GAP 8 (8-16); ASPARTATE AMINO TRANSFERASE 51 U/L (10-37); BILIRUBIN,TOTAL 1.3 MG/DL (0.1-1.0); BLOOD UREA NITROGEN 14 MG/DL (7-18); BUN/CREATININE RATIO 17.7 (5.4-32.0); CALCIUM 8.2 MG/DL (8.5-10.1); CHLORIDE 103 MMOL/L (99-107); CREATININE 0.79 MG/DL (0.60-1.10); GLUCOSE 178 MG/DL (70-104); PHOSPHORUS 2.5 MG/DL (2.3-4.5); SODIUM 137 MMOL/L (135-145); TOTAL CARBON DIOXIDE 25.7 MMOL/L (24-32); TOTAL PROTEIN 5.5 G/DL (6.4-8.2); eGFR > 90 ML/MIN
[2019-05-28] MEDS: potassium Cl 20mEq/100mL bag 100 ML IV PRN ×4 (12:17→22:59)
--- NOTE | 2019-05-28 12:31 | NUR ---
CABG Consult: Pt admit w/ multi-vessel heart disease s/p CABG this AM. PO 100% heart healthy diet prior to OR meeting needs. LBM 05/25. Will need CABG ed once stable prior to d/c. Will monitor for diet advancement and additional protein needs post-op. Rec: 1. advance diet per MD to heart healthy 2. monitor for ONS needs post-op 3. routine bowel care post-op 4. CABG ed once stable prior to d/c 5. wt per rx Addendum: 05/28/19 at [address] Amended: Links added.
[2019-05-28] MEDS: gabapentin 300mg capsule PO SCH ×2 (13:06→19:41)
[2019-05-28] MEDS: magnesium 2GM in 50ml NS 50 ML IV PRN ×2 (14:25→19:27)
[2019-05-28] MEDS: ceFAZolin 1GM/D5W- ADD-VANTAGE 50 ML IV SCH (15:56)
[2019-05-28 16:06] LABS: ABG BASE EXCESS -6.7 mmol/L (-2.0-3.0); ABG HCO3 17.8 mmol/L (22.0-26.0); ABG OXYGEN SATURATION 95.8 % (95-98); ABG PCO2 (T) 32.7 mmHg (35.0-45.0); ABG PH (T) 7.354 (7.350-7.450); ABG PO2 (T) 85.3 mmHg (83-108); FCOHb 0.2 % (0.5-1.5); FMetHb 0.2 % (0.3-1.12); FO2Hb 95.4 % (94-100); PEEP 5 cm H2O; TIDAL VOLUME 724 mL; TOTAL HEMOGLOBIN 13.1 G/dl (14.0-17.9)
[2019-05-28 17:30] LABS: BASOPHILS % (AUTO) 0.1 % (0-1); EOSINOPHILS % (AUTO) 0 % (0-6); HEMATOCRIT 35.4 % (42.0-52.0); HEMOGLOBIN 12.6 g/dl (14.0-17.9); LYMPHOCYTES # (AUTO) 0.3 X10'3 (1.1-4.8); LYMPHOCYTES % (AUTO) 1.9 % (21-51); MEAN CORPUSCULAR HEMOGLOBIN 33.1 PG (27.0-31.0); MEAN CORPUSCULAR HGB CONC 35.6 g/dL (33.0-36.5); MEAN CORPUSCULAR VOLUME 92.8 FL (78-98); MEAN PLATELET VOLUME 6.7 FL (7.4-10.4); MONOCYTES # (AUTO) 0.4 X10'3 (0-0.9); MONOCYTES % (AUTO) 2.9 % (2-12); NEUTROPHILS # (AUTO) 12.4 X10'3 (1.8-7.7); NEUTROPHILS % (AUTO) 95.1 % (42-75); PLATELET COUNT 126 X10'3 (140-440); RED BLOOD COUNT 3.82 X10'6 (4.70-6.10); RED CELL DISTRIBUTION WIDTH 13.5 % (11.5-14.5)
[2019-05-28 17:46] LABS: ALBUMIN 3.5 G/DL (3.4-5.0); ANION GAP 10 (8-16); BLOOD UREA NITROGEN 14 MG/DL (7-18); BUN/CREATININE RATIO 12.4 (5.4-32.0); CALCIUM 8.1 MG/DL (8.5-10.1); CHLORIDE 106 MMOL/L (99-107); CREATININE 1.13 MG/DL (0.60-1.10); GLUCOSE 189 MG/DL (70-104); MAGNESIUM 2.2 MG/DL (1.5-2.4); PHOSPHORUS 4.1 MG/DL (2.3-4.5); POTASSIUM 4.1 MMOL/L (3.5-5.1); SODIUM 138 MMOL/L (135-145); eGFR 63 ML/MIN
--- NOTE | 2019-05-28 18:20 | NUR ---
Patient in room ICU 2045. I have received report from Melia ORTEGA and had the opportunity to ask questions and assume patient care. Patient resting in bed with eyes closed, respirations even/unlabored and in no apparent distress. Vitals WNL at this time, nitro infusing at 5mcg/kg/min with SBP in 110s. Heart rate in mid 90s in sinus rhythm. AV wires in place, pacer currently off. Will continue to monitor patient.
[2019-05-28] MEDS: sennosides/docusate sodium tablet PO SCH (19:39)
[2019-05-28] MEDS: mupirocin 2% ointment 22GM NS SCH (19:39)
[2019-05-28] MEDS: vancomycin/NS 1 GM ADD-VANTAGE 250 ML IV SCH (20:56)
[2019-05-29] VITALS (24 sets, daily range): BP systolic 118–156; BP diastolic 38–78
[2019-05-29] MEDS: ceFAZolin 1GM/D5W- ADD-VANTAGE 50 ML IV SCH ×3 (00:05→16:17)
[2019-05-29 04:20] LABS: BASOPHILS % (AUTO) 0.1 % (0-1); EOSINOPHILS % (AUTO) 0 % (0-6); HEMATOCRIT 35.2 % (42.0-52.0); HEMOGLOBIN 12.6 g/dl (14.0-17.9); LYMPHOCYTES # (AUTO) 0.2 X10'3 (1.1-4.8); LYMPHOCYTES % (AUTO) 1.8 % (21-51); MEAN CORPUSCULAR HEMOGLOBIN 33.6 PG (27.0-31.0); MEAN CORPUSCULAR HGB CONC 35.8 g/dL (33.0-36.5); MEAN CORPUSCULAR VOLUME 93.7 FL (78-98); MONOCYTES # (AUTO) 0.7 X10'3 (0-0.9); MONOCYTES % (AUTO) 5.2 % (2-12); NEUTROPHILS # (AUTO) 13.1 X10'3 (1.8-7.7); NEUTROPHILS % (AUTO) 92.9 % (42-75); PLATELET COUNT 119 X10'3 (140-440); RED BLOOD COUNT 3.75 X10'6 (4.70-6.10); RED CELL DISTRIBUTION WIDTH 13.7 % (11.5-14.5); WHITE BLOOD COUNT 14.1 X10'3 (4.5-11.0)
[2019-05-29 04:32] LABS: PARTIAL THROMBOPLASTIN TIME 27 SECONDS (22-32)
[2019-05-29 04:34] LABS: ALANINE AMINOTRANSFERASE 37 U/L (12-78); ALBUMIN 3.6 G/DL (3.4-5.0); ALBUMIN/GLOBULIN RATIO 1.5 (1.1-1.5); ALKALINE PHOSPHATASE 41 IU/L (46-116); ANION GAP 6 (8-16); ASPARTATE AMINO TRANSFERASE 100 U/L (10-37); BILIRUBIN,TOTAL 0.8 MG/DL (0.1-1.0); BLOOD UREA NITROGEN 17 MG/DL (7-18); BUN/CREATININE RATIO 18.9 (5.4-32.0); CALCIUM 8.6 MG/DL (8.5-10.1); CHLORIDE 107 MMOL/L (99-107); GLUCOSE 121 MG/DL (70-104); MAGNESIUM 2.2 MG/DL (1.5-2.4); PHOSPHORUS 3.8 MG/DL (2.3-4.5); POTASSIUM 4.4 MMOL/L (3.5-5.1); SODIUM 138 MMOL/L (135-145); TOTAL CARBON DIOXIDE 24.8 MMOL/L (24-32); eGFR 82 ML/MIN
[2019-05-29] MEDS: potassium Cl 20mEq/100mL bag 100 ML IV PRN (04:58)
[2019-05-29] MEDS: magnesium 2GM in 50ml NS 50 ML IV PRN ×2 (04:59→22:41)
--- NOTE | 2019-05-29 06:17 | NUR ---
Problems reprioritized. Patient report given, questions answered & plan of care reviewed with Krystal ORTEGA.
--- NOTE | 2019-05-29 06:22 | NUR ---
Patient in room ICU 2045. I have received report from JORDAN Cantu and had the opportunity to ask questions and assume patient care.
[2019-05-29 06:51] LABS: ACTIVATED CLOTTING TIME 135 SEC (101-148)
[2019-05-29 06:51] LABS: ACT @ 1.70 U 307 SEC (193-297); ACT @ 2.84 U 444 SEC (260-420); BASELINE ACT 152 SEC (101-148)
[2019-05-29] MEDS: vancomycin/NS 1 GM ADD-VANTAGE 250 ML IV SCH ×2 (07:20→19:29)
[2019-05-29] MEDS: allopurinol 300 MG tablet PO SCH (07:21)
[2019-05-29] MEDS: gabapentin 300mg capsule PO SCH ×3 (07:21→21:14)
[2019-05-29] MEDS: sennosides/docusate sodium tablet PO SCH ×2 (07:21→21:14)
[2019-05-29] MEDS: mupirocin 2% ointment 22GM NS SCH ×2 (07:22→19:31)
[2019-05-29] MEDS: citalopram 20mg tablet PO SCH (07:22)
[2019-05-29] MEDS: vitamin D (cholecalciferol) 1,000 unit tablet PO SCH (07:22)
[2019-05-29] MEDS ORDERED: aspirin 325mg tablet, delayed-release (Ecotrin) PO SCH (08:00)
[2019-05-29] MEDS ORDERED: metoprolol tartrate 12.5mg (1/2 tablet) PO SCH (08:00)
[2019-05-29] MEDS ORDERED: atorvastatin 10mg tablet PO SCH (08:00)
[2019-05-29] MEDS ORDERED: dextrose ORAL solution 15 GM/59 ML bottle PO PRN ×2 (08:50)
[2019-05-29] MEDS ORDERED: glucagon, human recombinant 1mg kit SUBCUT PRN (08:50)
[2019-05-29] MEDS ORDERED: dextrose 50%-water 50ml dispensing syringe IV PRN ×2 (08:50)
[2019-05-29] MEDS: insulin Lispro (HumaLOG) vial - multi-dose SQ SCH ×3 (09:22→19:30)
[2019-05-29] MEDS ORDERED: nitroGLYCERIN-Tridil 50MG/D5W 250 ML IV PRN (09:39)
[2019-05-29] MEDS ORDERED: Insulin Reg/NS 100units/100mL 100 ML IV SCH (09:40)
[2019-05-29] MEDS ORDERED: niCARDipine-NS 40mg/200ml IVPB 200 ML IV PRN (09:40)
--- NOTE | 2019-05-29 10:00 | NUR ---
ART, PA and blank cath removed without difficulty. Pt tolerated well
--- NOTE | 2019-05-29 18:01 | NUR ---
Pt had 12 beat run of v tach. All other vitals stable. Spoke with Olegario and Dr. Heard who agreed to order cmp and mg and give 50mg lopressor now.
[2019-05-29] MEDS ORDERED: metoprolol tartrate 50mg tablet PO ONE (18:10)
[2019-05-29] MEDS: metoprolol tartrate 50mg tablet PO SCH (18:14)
--- NOTE | 2019-05-29 18:18 | NUR ---
Problems reprioritized. Patient report given, questions answered & plan of care reviewed with JORDAN Herrera.
--- NOTE | 2019-05-29 18:21 | NUR ---
Patient in room ICU 2045. I have received report from LEXI ORTEGA and had the opportunity to ask questions and assume patient care.
[2019-05-29 19:32] LABS: ALANINE AMINOTRANSFERASE 41 U/L (12-78); ALBUMIN 3.6 G/DL (3.4-5.0); ALBUMIN/GLOBULIN RATIO 1.3 (1.1-1.5); ALKALINE PHOSPHATASE 44 IU/L (46-116); ANION GAP 5 (8-16); ASPARTATE AMINO TRANSFERASE 90 U/L (10-37); BILIRUBIN,TOTAL 0.6 MG/DL (0.1-1.0); BLOOD UREA NITROGEN 21 MG/DL (7-18); BUN/CREATININE RATIO 22.3 (5.4-32.0); CALCIUM 8.5 MG/DL (8.5-10.1); CHLORIDE 101 MMOL/L (99-107); CREATININE 0.94 MG/DL (0.60-1.10); GLUCOSE 164 MG/DL (70-104); MAGNESIUM 2.1 MG/DL (1.5-2.4); POTASSIUM 4.6 MMOL/L (3.5-5.1); SODIUM 135 MMOL/L (135-145); TOTAL CARBON DIOXIDE 28.6 MMOL/L (24-32); TOTAL PROTEIN 6.3 G/DL (6.4-8.2); eGFR 78 ML/MIN
[2019-05-30] VITALS (23 sets, daily range): BP systolic 103–151; BP diastolic 53–101
[2019-05-30] MEDS: ceFAZolin 1GM/D5W- ADD-VANTAGE 50 ML IV SCH (00:51)
[2019-05-30] MEDS ORDERED: amiodarone/D5 360MG/200ML BAG 200 ML IV ONE (01:57)
[2019-05-30] MEDS ORDERED: amiodarone 150mg/dext, iso-os 100 ML IV ONE ×2 (01:57→02:00)
[2019-05-30] MEDS: amiodarone/D5 360MG/200ML BAG 200 ML IV SCH ×6 (02:03→21:33)
--- NOTE | 2019-05-30 02:15 | NUR ---
pt went into rapid a fib 160s to 170s. phoned Dr Heard immediately, orders received for amio bolus and gtt. pt asymptomatic otherwise awake and talking, BP 125/61.
--- NOTE | 2019-05-30 04:26 | NUR ---
phoned Dr Heard to update on pt. pt is receiving amiodarone gtt, however pt has been awake and HR is more consistently 140s-160s. did drop into 110s-120s after initial bolus. BP is maintaining 127/89. pt is complaining about lack of sleep otherwise alert and oriented. Félix said to keep amiodarone going, if BP is stable just cont to monitor. no new orders
--- NOTE | 2019-05-30 06:15 | NUR ---
Problems reprioritized. Patient report given, questions answered & plan of care reviewed with DENISE ORTEGA.
[2019-05-30] MEDS: pantoprazole 40mg Tablet.DR PO SCH (07:22)
[2019-05-30] MEDS: allopurinol 300 MG tablet PO SCH (07:22)
[2019-05-30] MEDS: mupirocin 2% ointment 22GM NS SCH (08:00)
[2019-05-30] MEDS: gabapentin 300mg capsule PO SCH (08:00)
[2019-05-30] MEDS ORDERED: furosemide 40mg/4ml inj IV ONE (08:05)
[2019-05-30] MEDS: insulin Lispro (HumaLOG) vial - multi-dose SQ SCH ×3 (09:07→20:19)
[2019-05-30] MEDS: citalopram 20mg tablet PO SCH (09:23)
[2019-05-30] MEDS: vitamin D (cholecalciferol) 1,000 unit tablet PO SCH (09:23)
[2019-05-30] MEDS: metoprolol tartrate 50mg tablet PO SCH ×2 (09:23→20:15)
[2019-05-30] MEDS: sennosides/docusate sodium tablet PO SCH ×2 (09:26→20:15)
--- NOTE | 2019-05-30 10:49 | NUR ---
F/u: Pt seen by BRANDON for written/verbal CABG/heart healthy diet eds w/ BRANDON contact information provided. Pt is agreeable to ensure enlive TIMarielleWM; dietary notified. Addendum: 05/30/19 at [address] Amended: Links added.
[2019-05-30] MEDS: sodium chloride 0.45% 1,000 ML IV SCH (11:01)
[2019-05-30] MEDS: magnesium 2GM in 50ml NS 50 ML IV PRN (12:13)
[2019-05-30] MEDS: lactose-reduced food (Ensure Enlive) - 237ml bottle PO SCH ×2 (13:00→18:32)
[2019-05-30 15:22] LABS: BASOPHILS % (AUTO) 0.2 % (0-1); EOSINOPHILS % (AUTO) 0 % (0-6); HEMATOCRIT 36.7 % (42.0-52.0); HEMOGLOBIN 12.7 g/dl (14.0-17.9); LYMPHOCYTES # (AUTO) 1.2 X10'3 (1.1-4.8); LYMPHOCYTES % (AUTO) 5.5 % (21-51); MEAN CORPUSCULAR HGB CONC 34.7 g/dL (33.0-36.5); MEAN PLATELET VOLUME 7.9 FL (7.4-10.4); MONOCYTES # (AUTO) 2.3 X10'3 (0-0.9); MONOCYTES % (AUTO) 10.4 % (2-12); NEUTROPHILS # (AUTO) 18.5 X10'3 (1.8-7.7); NEUTROPHILS % (AUTO) 83.9 % (42-75); PLATELET COUNT 169 X10'3 (140-440); RED BLOOD COUNT 3.86 X10'6 (4.70-6.10); RED CELL DISTRIBUTION WIDTH 13.6 % (11.5-14.5)
[2019-05-30 15:35] LABS: ALBUMIN 3.5 G/DL (3.4-5.0); ANION GAP 7 (8-16); BLOOD UREA NITROGEN 25 MG/DL (7-18); BUN/CREATININE RATIO 26.9 (5.4-32.0); CALCIUM 8.5 MG/DL (8.5-10.1); CHLORIDE 99 MMOL/L (99-107); CREATININE 0.93 MG/DL (0.60-1.10); GLUCOSE 149 MG/DL (70-104); MAGNESIUM 2.6 MG/DL (1.5-2.4); PHOSPHORUS 2.7 MG/DL (2.3-4.5); POTASSIUM 4.3 MMOL/L (3.5-5.1); SODIUM 135 MMOL/L (135-145); TOTAL CARBON DIOXIDE 28.9 MMOL/L (24-32); eGFR 79 ML/MIN
--- NOTE | 2019-05-30 22:27 | NUR ---
Problems reprioritized. Patient report given, questions answered & plan of care reviewed with Christiano ORTEGA.
--- NOTE | 2019-05-30 22:38 | NUR ---
patient transfered via bed to ACCE unit accompanied by Ally DUMONT and Sonia Nathan RN. Patient care to be assumed by Christiano ORTEGA.
[2019-05-31] VITALS (8 sets, daily range): BP systolic 129–154; BP diastolic 63–71
[2019-05-31] MEDS: amiodarone/D5 360MG/200ML BAG 200 ML IV SCH ×2 (01:28→05:15)
--- NOTE | 2019-05-31 06:10 | NUR ---
Patient in room MED 311. I have received report from JORDAN Alvarado and had the opportunity to ask questions and assume patient care.
--- NOTE | 2019-05-31 06:31 | NUR ---
Problems reprioritized. Patient report given to Zeina, questions answered & plan of care reviewed with .
[2019-05-31 06:36] LABS: ALBUMIN 3.1 G/DL (3.4-5.0); ANION GAP 5 (8-16); BLOOD UREA NITROGEN 25 MG/DL (7-18); BUN/CREATININE RATIO 36.2 (5.4-32.0); CALCIUM 7.9 MG/DL (8.5-10.1); CHLORIDE 100 MMOL/L (99-107); CREATININE 0.69 MG/DL (0.60-1.10); GLUCOSE 94 MG/DL (70-104); MAGNESIUM 1.8 MG/DL (1.5-2.4); PHOSPHORUS 2.7 MG/DL (2.3-4.5); POTASSIUM 3.7 MMOL/L (3.5-5.1); SODIUM 135 MMOL/L (135-145); TOTAL CARBON DIOXIDE 29.8 MMOL/L (24-32); eGFR > 90 ML/MIN
[2019-05-31 07:34] LABS: BASOPHILS # (AUTO) 0.1 X10'3 (0-0.2); BASOPHILS % (AUTO) 0.4 % (0-1); EOSINOPHILS % (AUTO) 0 % (0-6); HEMATOCRIT 31.5 % (42.0-52.0); HEMOGLOBIN 11.2 g/dl (14.0-17.9); LYMPHOCYTES # (AUTO) 1.3 X10'3 (1.1-4.8); LYMPHOCYTES % (AUTO) 10.2 % (21-51); MEAN CORPUSCULAR HEMOGLOBIN 33.2 PG (27.0-31.0); MEAN CORPUSCULAR HGB CONC 35.5 g/dL (33.0-36.5); MEAN CORPUSCULAR VOLUME 93.3 FL (78-98); MONOCYTES # (AUTO) 1.3 X10'3 (0-0.9); MONOCYTES % (AUTO) 10.6 % (2-12); NEUTROPHILS # (AUTO) 9.8 X10'3 (1.8-7.7); NEUTROPHILS % (AUTO) 78.8 % (42-75); PLATELET COUNT 115 X10'3 (140-440); RED BLOOD COUNT 3.38 X10'6 (4.70-6.10); RED CELL DISTRIBUTION WIDTH 13.5 % (11.5-14.5); WHITE BLOOD COUNT 12.4 X10'3 (4.5-11.0)
[2019-05-31] MEDS ORDERED: aspirin 325mg tablet, delayed-release (Ecotrin) PO SCH (08:00)
[2019-05-31] MEDS: citalopram 20mg tablet PO SCH (08:17)
[2019-05-31] MEDS: vitamin D (cholecalciferol) 1,000 unit tablet PO SCH (08:17)
[2019-05-31] MEDS: atorvastatin 10mg tablet PO SCH (08:17)
[2019-05-31] MEDS: allopurinol 300 MG tablet PO SCH (08:17)
[2019-05-31] MEDS: amiodarone 200mg tablet PO SCH ×2 (08:17→21:16)
[2019-05-31] MEDS: potassium Cl 20 mEq SR tablet PO PRN ×3 (08:17→14:31)
[2019-05-31] MEDS: pantoprazole 40mg Tablet.DR PO SCH (08:18)
[2019-05-31] MEDS: lactose-reduced food (Ensure Enlive) - 237ml bottle PO SCH ×3 (08:18→18:00)
[2019-05-31] MEDS: sennosides/docusate sodium tablet PO SCH ×2 (08:18→21:15)
[2019-05-31] MEDS: metoprolol tartrate 50mg tablet PO SCH ×2 (08:19→21:15)
[2019-05-31] MEDS: magnesium 4gm in 100ml NS 100 ML IV PRN (08:19)
--- NOTE | 2019-05-31 18:21 | NUR ---
Problems reprioritized. Patient report given, questions answered & plan of care reviewed with JORDAN Cabral.
--- NOTE | 2019-05-31 18:21 | NUR ---
Patient in room MED 311. I have received report from Sharron ORTEGA and had the opportunity to ask questions and assume patient care.
[2019-06-01 02:00] VITALS: BP 147/73
[2019-06-01 06:00] VITALS: BP 137/61
--- NOTE | 2019-06-01 06:10 | NUR ---
Patient in room MED 311. I have received report from JORDAN Cabral and had the opportunity to ask questions and assume patient care.
--- NOTE | 2019-06-01 06:17 | NUR ---
Problems reprioritized. Patient report given, questions answered & plan of care reviewed with Sharron ORTEGA.
[2019-06-01 06:47] LABS: ALBUMIN 3.2 G/DL (3.4-5.0); ANION GAP 6 (8-16); BLOOD UREA NITROGEN 16 MG/DL (7-18); BUN/CREATININE RATIO 21.9 (5.4-32.0); CALCIUM 8.2 MG/DL (8.5-10.1); CHLORIDE 100 MMOL/L (99-107); CREATININE 0.73 MG/DL (0.60-1.10); GLUCOSE 105 MG/DL (70-104); MAGNESIUM 1.9 MG/DL (1.5-2.4); POTASSIUM 3.9 MMOL/L (3.5-5.1); SODIUM 133 MMOL/L (135-145); TOTAL CARBON DIOXIDE 26.9 MMOL/L (24-32); eGFR > 90 ML/MIN
[2019-06-01 07:20] LABS: BASOPHILS # (AUTO) 0.1 X10'3 (0-0.2); BASOPHILS % (AUTO) 0.7 % (0-1); EOSINOPHILS % (AUTO) 0.3 % (0-6); HEMATOCRIT 33.5 % (42.0-52.0); HEMOGLOBIN 11.8 g/dl (14.0-17.9); LYMPHOCYTES # (AUTO) 1.3 X10'3 (1.1-4.8); LYMPHOCYTES % (AUTO) 13.5 % (21-51); MEAN CORPUSCULAR HEMOGLOBIN 33.1 PG (27.0-31.0); MEAN CORPUSCULAR HGB CONC 35.3 g/dL (33.0-36.5); MEAN CORPUSCULAR VOLUME 93.7 FL (78-98); MEAN PLATELET VOLUME 7.8 FL (7.4-10.4); MONOCYTES % (AUTO) 9.9 % (2-12); NEUTROPHILS # (AUTO) 7.5 X10'3 (1.8-7.7); NEUTROPHILS % (AUTO) 75.6 % (42-75); PLATELET COUNT 144 X10'3 (140-440); RED BLOOD COUNT 3.57 X10'6 (4.70-6.10); RED CELL DISTRIBUTION WIDTH 13.4 % (11.5-14.5); WHITE BLOOD COUNT 9.9 X10'3 (4.5-11.0)
[2019-06-01] MEDS: sennosides/docusate sodium tablet PO SCH ×2 (07:23→18:55)
[2019-06-01] MEDS: atorvastatin 10mg tablet PO SCH (07:23)
[2019-06-01] MEDS: pantoprazole 40mg Tablet.DR PO SCH (07:23)
[2019-06-01] MEDS: vitamin D (cholecalciferol) 1,000 unit tablet PO SCH (07:23)
[2019-06-01] MEDS: aspirin 81mg tablet.DR PO SCH (07:24)
[2019-06-01] MEDS: amiodarone 200mg tablet PO SCH ×2 (07:24→18:55)
[2019-06-01] MEDS: potassium Cl 20 mEq SR tablet PO PRN (07:24)
[2019-06-01] MEDS: allopurinol 300 MG tablet PO SCH (07:24)
[2019-06-01] MEDS: citalopram 20mg tablet PO SCH (07:25)
[2019-06-01] MEDS: metoprolol tartrate 50mg tablet PO SCH ×2 (07:25→18:55)
[2019-06-01] MEDS: magnesium 4gm in 100ml NS 100 ML IV PRN (07:26)
[2019-06-01] MEDS: lactose-reduced food (Ensure Enlive) - 237ml bottle PO SCH ×3 (07:34→18:00)
--- NOTE | 2019-06-01 09:07 | NUR ---
CASE MANAGEMENT PAGED: 311: SPINNER - SNF TRANSFER SIGNED AND READY TO FAX :D
--- NOTE | 2019-06-01 09:12 | NUR ---
DARRICK, CERAMICS ARTIST, CALLED BACK. FAX NUMBER FOR [facility] PROVIDED, SNF TRANSFER / TMS PAPERS SIGNED AND FAXED. AWAITING FLIGHT CREW ORDNANCEMAN TIME
[2019-06-01 11:00] VITALS: BP 136/59
--- NOTE | 2019-06-01 12:42 | NUR ---
CASE MANAGEMENT PAGED: 311: JACQUELYN URRUTIA IN DENYING ADMISSION, PT WALKS > 250FT. UNLESS ADAM OR CANDIDA CALL AND REQUEST MD TO MD TRANSFER
[2019-06-01 15:00] VITALS: BP 130/62
[2019-06-01 18:00] VITALS: BP 155/70
--- NOTE | 2019-06-01 18:00 | NUR ---
Problems reprioritized. Patient report given, questions answered & plan of care reviewed with JORDAN Cabral.
--- NOTE | 2019-06-01 18:29 | NUR ---
Patient in room MED 311. I have received report from Rebecca ORTEGA and had the opportunity to ask questions and assume patient care.
[2019-06-01 22:00] VITALS: BP 145/65
[2019-06-02 02:00] VITALS: BP 157/65
[2019-06-02 05:00] LABS: BASOPHILS % (AUTO) 0.2 % (0-1); EOSINOPHILS % (AUTO) 0.5 % (0-6); LYMPHOCYTES # (AUTO) 1.2 X10'3 (1.1-4.8); LYMPHOCYTES % (AUTO) 14.3 % (21-51); MEAN PLATELET VOLUME 7.2 FL (7.4-10.4); MONOCYTES % (AUTO) 11.6 % (2-12); NEUTROPHILS # (AUTO) 6.3 X10'3 (1.8-7.7); NEUTROPHILS % (AUTO) 73.4 % (42-75); PLATELET COUNT 156 X10'3 (140-440); WHITE BLOOD COUNT 8.6 X10'3 (4.5-11.0)
[2019-06-02 05:13] LABS: ALBUMIN 2.8 G/DL (3.4-5.0); ANION GAP 4 (8-16); BLOOD UREA NITROGEN 16 MG/DL (7-18); BUN/CREATININE RATIO 22.9 (5.4-32.0); CALCIUM 7.9 MG/DL (8.5-10.1); CHLORIDE 99 MMOL/L (99-107); GLUCOSE 107 MG/DL (70-104); MAGNESIUM 1.8 MG/DL (1.5-2.4); PHOSPHORUS 3.4 MG/DL (2.3-4.5); POTASSIUM 3.7 MMOL/L (3.5-5.1); SODIUM 132 MMOL/L (135-145); TOTAL CARBON DIOXIDE 29.5 MMOL/L (24-32); eGFR > 90 ML/MIN
[2019-06-02 06:00] VITALS: BP 160/65
--- NOTE | 2019-06-02 06:20 | NUR ---
Patient in room MED 311. I have received report from JORDAN Cabral and had the opportunity to ask questions and assume patient care.
[2019-06-02 06:26] LABS: HEMATOCRIT 34.6 % (42.0-52.0); HEMOGLOBIN 11.6 g/dl (14.0-17.9); MEAN CORPUSCULAR VOLUME 93.4 FL (78-98); RED BLOOD COUNT 3.41 X10'6 (4.70-6.10)
--- NOTE | 2019-06-02 06:26 | NUR ---
Problems reprioritized. Patient report given, questions answered & plan of care reviewed with Sharron ORTEGA.
[2019-06-02 06:27] LABS: MEAN CORPUSCULAR HGB CONC 33.5 g/dL (33.0-36.5); RED CELL DISTRIBUTION WIDTH 13.9 % (11.5-14.5)
[2019-06-02] MEDS: pantoprazole 40mg Tablet.DR PO SCH (07:49)
[2019-06-02] MEDS: allopurinol 300 MG tablet PO SCH (07:49)
[2019-06-02] MEDS: metoprolol tartrate 50mg tablet PO SCH ×2 (07:49→20:47)
[2019-06-02] MEDS: sennosides/docusate sodium tablet PO SCH ×2 (07:49→20:47)
[2019-06-02] MEDS: lactose-reduced food (Ensure Enlive) - 237ml bottle PO SCH ×3 (07:49→18:29)
[2019-06-02] MEDS: atorvastatin 10mg tablet PO SCH (07:49)
[2019-06-02] MEDS: potassium Cl 20 mEq SR tablet PO PRN ×3 (07:50→12:31)
[2019-06-02] MEDS: amiodarone 200mg tablet PO SCH ×2 (07:50→20:47)
[2019-06-02] MEDS: aspirin 81mg tablet.DR PO SCH (07:50)
[2019-06-02] MEDS: citalopram 20mg tablet PO SCH (07:50)
[2019-06-02] MEDS: magnesium 4gm in 100ml NS 100 ML IV PRN (07:50)
[2019-06-02] MEDS: vitamin D (cholecalciferol) 1,000 unit tablet PO SCH (07:50)
--- NOTE | 2019-06-02 09:43 | NUR ---
MANAGEMENT PAGED: 311: JACQUELYN - ANYTHING FROM ? JESSICA WAS GOING TO CALL THE MD TO APPROVE ADMISSION.
--- NOTE | 2019-06-02 10:30 | NUR ---
Patient refused ambulation. Rationale education provided, patient verbalized understanding.
--- NOTE | 2019-06-02 11:04 | NUR ---
Patient refused routine 11am vital signs. Rationale provided, patient stated he would like to sleep without interruption.
[2019-06-02 12:36] VITALS: BP 142/70
--- NOTE | 2019-06-02 13:14 | NUR ---
Reassessment: Pt receiving Ensure Enlive TID however appears to not be drinking it. Pt continues on no concentrated sweets diet documented with 75-100% PO intake closely meeting nutrient needs. D/w dietary to send double protein BIDLD for satiety and increased protein needs to support wound healing since pt is eating well and not drinking ONS. LBM 05/31. Will continue to follow and monitor need for further nutrition intervention. Rec: 1. advance diet per MD to heart healthy 2. double protein BIDLD; monitor need to d/c Ensure Enlive TID if continues with good PO intake 3. routine bowel care 4. wt per rx Addendum: 06/02/19 at [address] Amended: Links added.
[2019-06-02 15:00] VITALS: BP 147/64
[2019-06-02 18:00] VITALS: BP_SYST 153; BP_SYST 164; BP_DIAS 52; BP_DIAS 69
--- NOTE | 2019-06-02 18:00 | NUR ---
Patient in room MED 311. I have received report from KELLEE ORTEGA and had the opportunity to ask questions and assume patient care.
--- NOTE | 2019-06-02 18:29 | NUR ---
Problems reprioritized. Patient report given, questions answered & plan of care reviewed with JORDAN Godinez.
[2019-06-02 22:00] VITALS: BP 137/58
[2019-06-03] VITALS (7 sets, daily range): BP systolic 146–168; BP diastolic 60–76
--- NOTE | 2019-06-03 02:15 | NUR ---
CRUSHER PLANT OPERATOR NOTIFIED PATIENT PLACED ON TELE #26.
[2019-06-03 05:23] LABS: BASOPHILS % (AUTO) 0.1 % (0-1); EOSINOPHILS # (AUTO) 0.1 X10'3 (0-0.9); EOSINOPHILS % (AUTO) 0.7 % (0-6); HEMATOCRIT 33.6 % (42.0-52.0); HEMOGLOBIN 11.8 g/dl (14.0-17.9); LYMPHOCYTES # (AUTO) 1.4 X10'3 (1.1-4.8); LYMPHOCYTES % (AUTO) 11.7 % (21-51); MEAN CORPUSCULAR HEMOGLOBIN 32.8 PG (27.0-31.0); MEAN CORPUSCULAR HGB CONC 35.1 g/dL (33.0-36.5); MEAN CORPUSCULAR VOLUME 93.4 FL (78-98); MEAN PLATELET VOLUME 7.6 FL (7.4-10.4); MONOCYTES # (AUTO) 1.4 X10'3 (0-0.9); MONOCYTES % (AUTO) 11.7 % (2-12); NEUTROPHILS # (AUTO) 8.9 X10'3 (1.8-7.7); NEUTROPHILS % (AUTO) 75.8 % (42-75); PLATELET COUNT 212 X10'3 (140-440); RED CELL DISTRIBUTION WIDTH 13.5 % (11.5-14.5); WHITE BLOOD COUNT 11.7 X10'3 (4.5-11.0)
[2019-06-03 05:40] LABS: ANION GAP 8 (8-16); BLOOD UREA NITROGEN 12 MG/DL (7-18); BUN/CREATININE RATIO 16.9 (5.4-32.0); CALCIUM 8.3 MG/DL (8.5-10.1); CHLORIDE 99 MMOL/L (99-107); CREATININE 0.71 MG/DL (0.60-1.10); GLUCOSE 118 MG/DL (70-104); MAGNESIUM 1.9 MG/DL (1.5-2.4); PHOSPHORUS 3.2 MG/DL (2.3-4.5); POTASSIUM 4.1 MMOL/L (3.5-5.1); SODIUM 133 MMOL/L (135-145); eGFR > 90 ML/MIN
--- NOTE | 2019-06-03 06:00 | NUR ---
I have received report from Gretchen ORTEGA and had the opportunity to ask questions and assume patient care.
--- NOTE | 2019-06-03 06:16 | NUR ---
Problems reprioritized. Patient report given, questions answered & plan of care reviewed with CARLOS MANUEL ORTEGA.
[2019-06-03] MEDS: allopurinol 300 MG tablet PO SCH (07:27)
[2019-06-03] MEDS: aspirin 81mg tablet.DR PO SCH (07:27)
[2019-06-03] MEDS: amiodarone 200mg tablet PO SCH ×2 (07:27→20:39)
[2019-06-03] MEDS: atorvastatin 10mg tablet PO SCH (07:27)
[2019-06-03] MEDS: citalopram 20mg tablet PO SCH (07:28)
[2019-06-03] MEDS: vitamin D (cholecalciferol) 1,000 unit tablet PO SCH (07:28)
[2019-06-03] MEDS: pantoprazole 40mg Tablet.DR PO SCH (07:28)
[2019-06-03] MEDS: metoprolol tartrate 50mg tablet PO SCH ×2 (07:28→20:39)
[2019-06-03] MEDS: sennosides/docusate sodium tablet PO SCH ×2 (07:28→20:00)
[2019-06-03] MEDS: lactose-reduced food (Ensure Enlive) - 237ml bottle PO SCH ×2 (07:34→13:30)
--- NOTE | 2019-06-03 15:08 | NUR ---
JORDAN TC: Pt does not want ensures w/ meals any longer and instead would like Boston Pak. BRANDON d/w RN regarding d/c ensure enlive and changing to Boston pak per approval. Addendum: 06/03/19 at [address] Amended: Links added.
[2019-06-03] MEDS: JUVEN Smoothie Arginine/Glut./Ca2+Bmb (Juven 19.3pkt) 240ml cup PO SCH (18:00)
--- NOTE | 2019-06-03 18:26 | NUR ---
Problems reprioritized. Patient report given, questions answered & plan of care reviewed with Scott ORTEGA.
--- NOTE | 2019-06-03 18:30 | NUR ---
Patient in room MED 311. I have received report from Emmanuel ORTEGA and had the opportunity to ask questions and assume patient care.
[2019-06-03] MEDS ORDERED: zolpidem 5mg tablet PO ONE (20:20)
[2019-06-03] MEDS: diphenhydrAMINE 25mg capsule PO PRN (20:37)
[2019-06-03] MEDS: losartan 50mg tablet PO SCH (20:45)
[2019-06-04 01:30] VITALS: BP 140/65
[2019-06-04 01:47] LABS: BASOPHILS % (AUTO) 0.3 % (0-1); EOSINOPHILS # (AUTO) 0.1 X10'3 (0-0.9); EOSINOPHILS % (AUTO) 1.3 % (0-6); HEMATOCRIT 31.7 % (42.0-52.0); HEMOGLOBIN 11.6 g/dl (14.0-17.9); LYMPHOCYTES % (AUTO) 21.7 % (21-51); MEAN PLATELET VOLUME 7.3 FL (7.4-10.4); MONOCYTES # (AUTO) 1.1 X10'3 (0-0.9); MONOCYTES % (AUTO) 12.1 % (2-12); NEUTROPHILS # (AUTO) 5.9 X10'3 (1.8-7.7); NEUTROPHILS % (AUTO) 64.6 % (42-75); PLATELET COUNT 208 X10'3 (140-440); RED BLOOD COUNT 3.39 X10'6 (4.70-6.10); RED CELL DISTRIBUTION WIDTH 13.8 % (11.5-14.5); WHITE BLOOD COUNT 9.1 X10'3 (4.5-11.0)
[2019-06-04 01:55] LABS: MEAN CORPUSCULAR VOLUME 93.5 FL (78-98)
[2019-06-04 01:58] LABS: ALBUMIN 2.7 G/DL (3.4-5.0); ANION GAP 4 (8-16); BLOOD UREA NITROGEN 11 MG/DL (7-18); BUN/CREATININE RATIO 14.9 (5.4-32.0); CALCIUM 8.1 MG/DL (8.5-10.1); CHLORIDE 100 MMOL/L (99-107); CREATININE 0.74 MG/DL (0.60-1.10); GLUCOSE 94 MG/DL (70-104); MAGNESIUM 1.6 MG/DL (1.5-2.4); POTASSIUM 3.8 MMOL/L (3.5-5.1); SODIUM 133 MMOL/L (135-145); TOTAL CARBON DIOXIDE 28.9 MMOL/L (24-32); eGFR > 90 ML/MIN
[2019-06-04 06:00] VITALS: BP 158/70
--- NOTE | 2019-06-04 06:09 | NUR ---
Problems reprioritized. Patient report given, questions answered & plan of care reviewed with Dai ORTEGA.
--- NOTE | 2019-06-04 06:49 | NUR ---
Patient in room MED 311. I have received report from JORDAN Chavez and had the opportunity to ask questions and assume patient care.
[2019-06-04] MEDS: amiodarone 200mg tablet PO SCH ×2 (08:47→19:26)
[2019-06-04] MEDS: atorvastatin 10mg tablet PO SCH (08:47)
[2019-06-04] MEDS: sennosides/docusate sodium tablet PO SCH ×2 (08:47→19:25)
[2019-06-04] MEDS: pantoprazole 40mg Tablet.DR PO SCH (08:47)
[2019-06-04] MEDS: vitamin D (cholecalciferol) 1,000 unit tablet PO SCH (08:47)
[2019-06-04] MEDS: citalopram 20mg tablet PO SCH (08:47)
[2019-06-04] MEDS: allopurinol 300 MG tablet PO SCH (08:47)
[2019-06-04] MEDS: aspirin 81mg tablet.DR PO SCH (08:48)
[2019-06-04] MEDS: metoprolol tartrate 50mg tablet PO SCH ×2 (08:48→19:26)
[2019-06-04] MEDS: JUVEN Smoothie Arginine/Glut./Ca2+Bmb (Juven 19.3pkt) 240ml cup PO SCH ×3 (08:51→18:32)
[2019-06-04 10:00] VITALS: BP 154/64
[2019-06-04] MEDS: magnesium 2GM in 50ml NS 50 ML IV PRN (10:36)
[2019-06-04] MEDS: magnesium 4gm in 100ml NS 100 ML IV PRN (11:48)
[2019-06-04 14:00] VITALS: BP 136/62
--- NOTE | 2019-06-04 18:27 | NUR ---
Problems reprioritized. Patient report given, questions answered & plan of care reviewed with JORDAN Chavez.
[2019-06-04 18:40] VITALS: BP 121/64
--- NOTE | 2019-06-04 18:41 | NUR ---
Patient in room MED 311. I have received report from Mauri ORTEGA and had the opportunity to ask questions and assume patient care.
[2019-06-04] MEDS: diphenhydrAMINE 25mg capsule PO PRN (19:26)
[2019-06-04] MEDS: losartan 50mg tablet PO SCH (20:32)
[2019-06-04 22:26] VITALS: BP 136/56
--- NOTE | 2019-06-04 22:35 | NUR ---
Dr. Acosta notified, r/t pt HR sustained for 2 minutes HR 142-150 showing svt, vtac, a-fib, on the monitor. pt denies chest pain. upon chart check discovered K+ was not replaced this AM from the 3.8 K lab value. new orders, replace the 3.8K+ lab value now / protocol and recheck K+ and magnesium with AM labs. will continue to monitor pt. Addendum: 06/04/19 at 2243 by Scott Lundy RN pt instructed on vagal maneuver x2. HR decreased to 58. pt Sinus jasper. no distress noted
[2019-06-04] MEDS: potassium Cl 20 mEq SR tablet PO PRN (22:44)
[2019-06-04] MEDS ORDERED: zolpidem 5mg tablet PO PRN (23:05)
--- NOTE | 2019-06-04 23:09 | NUR ---
CALLED DR. TIRADO REGARDING PATIENT REQUESTING SOMETHING TO HELP HIM SLEEP, BENADRYL HAS BEEN INEFFECTIVE. NEW ORDER RECEIVED FOR AMBIEN 5MG PO ONE TIME.
[2019-06-05] VITALS (14 sets, daily range): BP systolic 118–158; BP diastolic 59–77
[2019-06-05 02:18] LABS: MAGNESIUM 1.9 MG/DL (1.5-2.4); POTASSIUM 4.5 MMOL/L (3.5-5.1)
--- NOTE | 2019-06-05 06:07 | NUR ---
Problems reprioritized. Patient report given, questions answered & plan of care reviewed with Rashid Wakefield.
--- NOTE | 2019-06-05 06:39 | NUR ---
Patient in room MED 311. I have received report from JORDAN Chavez and had the opportunity to ask questions and assume patient care.
[2019-06-05] MEDS: JUVEN Smoothie Arginine/Glut./Ca2+Bmb (Juven 19.3pkt) 240ml cup PO SCH ×3 (08:00→18:37)
[2019-06-05] MEDS: amiodarone 200mg tablet PO SCH ×2 (08:14→21:27)
[2019-06-05] MEDS: pantoprazole 40mg Tablet.DR PO SCH (08:14)
[2019-06-05] MEDS: aspirin 81mg tablet.DR PO SCH (08:14)
[2019-06-05] MEDS: sennosides/docusate sodium tablet PO SCH ×2 (08:14→21:26)
[2019-06-05] MEDS: citalopram 20mg tablet PO SCH (08:14)
[2019-06-05] MEDS: allopurinol 300 MG tablet PO SCH (08:14)
[2019-06-05] MEDS: atorvastatin 10mg tablet PO SCH (08:14)
[2019-06-05] MEDS: vitamin D (cholecalciferol) 1,000 unit tablet PO SCH (08:14)
[2019-06-05] MEDS: metoprolol tartrate 50mg tablet PO SCH ×2 (08:15→21:27)
[2019-06-05] MEDS: losartan 50mg tablet PO SCH (08:15)
[2019-06-05 09:27] LABS: ALBUMIN 3.1 G/DL (3.4-5.0); ANION GAP 6 (8-16); BLOOD UREA NITROGEN 12 MG/DL (7-18); CALCIUM 8.4 MG/DL (8.5-10.1); CHLORIDE 100 MMOL/L (99-107); CREATININE 0.92 MG/DL (0.60-1.10); GLUCOSE 146 MG/DL (70-104); SODIUM 134 MMOL/L (135-145); TOTAL CARBON DIOXIDE 28.2 MMOL/L (24-32); eGFR 80 ML/MIN
[2019-06-05 11:58] LABS: MAGNESIUM 1.8 MG/DL (1.5-2.4)
[2019-06-05] MEDS ORDERED: magnesium 2GM in 50ml NS 50 ML IV ONE (16:15)
--- NOTE | 2019-06-05 18:05 | NUR ---
Patient converted to A-Fib RVR, sustaining 130's-140's with bursts to 160's. Dr. Townsend called. Received orders to start amiodarone gtt per protocol, with no bolus, if patient's heart rate not controlled after 30 minutes. Patient states he can feel his heart racing at times. BP stable, no other complaints. Will continue to monitor.
--- NOTE | 2019-06-05 18:35 | NUR ---
Patient's heart rate still maintaining 130's-150's, IV amiodarone gtt ordered (per Dr. Townsend) and will start the gtt per protocol with no bolus dose.
--- NOTE | 2019-06-05 18:38 | NUR ---
Problems reprioritized. Patient report given, questions answered & plan of care reviewed with JORDAN Garcia.
[2019-06-05] MEDS: amiodarone/D5 360MG/200ML BAG 200 ML IV SCH (18:46)
[2019-06-05] MEDS: Melatonin 3mg tablet PO SCH (21:26)
[2019-06-05] MEDS: losartan 25mg tablet PO SCH (21:29)
[2019-06-05] MEDS: diphenhydrAMINE 25mg capsule PO PRN (22:28)
--- NOTE | 2019-06-05 22:30 | NUR ---
Patient converted back to Sinus Rhythm in the 60s. Will continue to monitor.
[2019-06-06] VITALS (9 sets, daily range): BP systolic 127–145; BP diastolic 48–78
[2019-06-06] MEDS: amiodarone/D5 360MG/200ML BAG 200 ML IV SCH (00:52)
[2019-06-06 05:59] LABS: MAGNESIUM 1.7 MG/DL (1.5-2.4); POTASSIUM 4.2 MMOL/L (3.5-5.1)
--- NOTE | 2019-06-06 06:05 | NUR ---
Patient in room MED 311. I have received report from Shona ORTEGA and had the opportunity to ask questions and assume patient care.
--- NOTE | 2019-06-06 06:28 | NUR ---
Problems reprioritized. Patient report given, questions answered & plan of care reviewed with JORDAN Strong.
[2019-06-06] MEDS: losartan 25mg tablet PO SCH (07:51)
[2019-06-06] MEDS: atorvastatin 10mg tablet PO SCH (07:51)
[2019-06-06] MEDS: metoprolol tartrate 50mg tablet PO SCH ×2 (07:52→20:04)
[2019-06-06] MEDS: citalopram 20mg tablet PO SCH (07:52)
[2019-06-06] MEDS: aspirin 81mg tablet.DR PO SCH (07:52)
[2019-06-06] MEDS: pantoprazole 40mg Tablet.DR PO SCH (07:52)
[2019-06-06] MEDS: allopurinol 300 MG tablet PO SCH (07:52)
[2019-06-06] MEDS: sennosides/docusate sodium tablet PO SCH ×2 (07:52→20:03)
[2019-06-06] MEDS: vitamin D (cholecalciferol) 1,000 unit tablet PO SCH (07:53)
[2019-06-06] MEDS ORDERED: amiodarone 200mg tablet OGT SCH (07:53)
[2019-06-06] MEDS: JUVEN Smoothie Arginine/Glut./Ca2+Bmb (Juven 19.3pkt) 240ml cup PO SCH ×3 (07:53→18:00)
[2019-06-06] MEDS ORDERED: amiodarone 200mg tablet PO SCH (08:00)
[2019-06-06] MEDS: amiodarone 200mg tablet PO SCH ×2 (08:00→20:04)
--- NOTE | 2019-06-06 16:43 | NUR ---
Reassessment: Pt continues with 75-100% PO intake of meals on no concentrated sweets diet while receiving double protein BIDLD. ONS has been changed from Ensure to Boston TID and pt documented with 75-100% PO intake meeting nutrient needs with adequate protein to support surgical wound healing. LB 06/04. Pt receiving routine bowel care. No further nutrition intervention warranted at this time. Will continue to follow. Rec: 1. advance diet per MD to heart healthy 2. double protein BIDLD; Boston shakes BID 3. routine bowel care 4. wt per rx Addendum: 06/06/19 at [address] Amended: Links added.
--- NOTE | 2019-06-06 17:31 | NUR ---
Reported off to Pamella ORTEGA.
--- NOTE | 2019-06-06 18:15 | NUR ---
Problems reprioritized. Patient report given, questions answered & plan of care reviewed with JORDAN Alvarado.
--- NOTE | 2019-06-06 19:33 | NUR ---
PATIENT PLACED ON TELE #25, NUCLEAR MEDICINE TECH NOTIFIED
[2019-06-06] MEDS: Melatonin 3mg tablet PO SCH (20:03)
[2019-06-07] VITALS (8 sets, daily range): BP systolic 121–160; BP diastolic 53–73
[2019-06-07 02:02] LABS: ALANINE AMINOTRANSFERASE 102 U/L (12-78); ALBUMIN 2.8 G/DL (3.4-5.0); ALBUMIN/GLOBULIN RATIO 0.9 (1.1-1.5); ALKALINE PHOSPHATASE 93 IU/L (46-116); ANION GAP 3 (8-16); ASPARTATE AMINO TRANSFERASE 34 U/L (10-37); BILIRUBIN,TOTAL 0.5 MG/DL (0.1-1.0); BLOOD UREA NITROGEN 13 MG/DL (7-18); BUN/CREATININE RATIO 16.3 (5.4-32.0); CALCIUM 8.2 MG/DL (8.5-10.1); CHLORIDE 99 MMOL/L (99-107); GLUCOSE 111 MG/DL (70-104); MAGNESIUM 1.6 MG/DL (1.5-2.4); SODIUM 133 MMOL/L (135-145); TOTAL PROTEIN 5.8 G/DL (6.4-8.2); eGFR > 90 ML/MIN
[2019-06-07 02:06] LABS: BASOPHILS # (AUTO) 0.1 X10'3 (0-0.2); BASOPHILS % (AUTO) 1.4 % (0-1); EOSINOPHILS # (AUTO) 0.1 X10'3 (0-0.9); EOSINOPHILS % (AUTO) 1.1 % (0-6); HEMATOCRIT 32.7 % (42.0-52.0); HEMOGLOBIN 11.3 g/dl (14.0-17.9); LYMPHOCYTES # (AUTO) 1.5 X10'3 (1.1-4.8); LYMPHOCYTES % (AUTO) 17.4 % (21-51); MEAN CORPUSCULAR HEMOGLOBIN 32.1 PG (27.0-31.0); MEAN CORPUSCULAR HGB CONC 34.5 g/dL (33.0-36.5); MEAN PLATELET VOLUME 7.1 FL (7.4-10.4); MONOCYTES # (AUTO) 0.9 X10'3 (0-0.9); MONOCYTES % (AUTO) 10.4 % (2-12); NEUTROPHILS % (AUTO) 69.7 % (42-75); PLATELET COUNT 256 X10'3 (140-440); RED BLOOD COUNT 3.51 X10'6 (4.70-6.10); RED CELL DISTRIBUTION WIDTH 13.6 % (11.5-14.5); WHITE BLOOD COUNT 8.6 X10'3 (4.5-11.0)
--- NOTE | 2019-06-07 04:10 | NUR ---
Called Olegario Jarvis and informed him regarding the patient converting back from NSR to A Fib and RVR confirmed with 12 lead EKG. He acknowledged the cardiac change and ordered to Re-bolus with amiodarone. No other orders were given at this time.
[2019-06-07] MEDS ORDERED: amiodarone 150mg/dext, iso-os 100 ML IV ONE (04:15)
--- NOTE | 2019-06-07 04:47 | NUR ---
Patient converted back from AFib with RVR to Sinus Bradycardia. Patient is alert, oriented x4. Not complaining of any chest pain.
--- NOTE | 2019-06-07 05:49 | NUR ---
Called Olegario Coleman regarding the patient converting back from Sinus Daniel back to A fib and RVR. He ordered an Echo and starting the patient on amiodarone per protocol without bolus. No other orders were given at this time.
[2019-06-07] MEDS: amiodarone/D5 360MG/200ML BAG 200 ML IV SCH ×3 (06:17→18:03)
--- NOTE | 2019-06-07 06:25 | NUR ---
Problems reprioritized. Patient report given to Sean, questions answered & plan of care reviewed with .
--- NOTE | 2019-06-07 07:02 | NUR ---
PAGED ECHO "ECHO ORDERED FOR 311, CARL VALLADARES. THANK YOU! ESTEFANIA LEVY [phone]"
--- NOTE | 2019-06-07 07:35 | NUR ---
PT INTO SR AT THIS TIME HR 69
[2019-06-07] MEDS: losartan 25mg tablet PO SCH (07:54)
[2019-06-07] MEDS: citalopram 20mg tablet PO SCH (07:56)
[2019-06-07] MEDS: metoprolol tartrate 50mg tablet PO SCH ×2 (07:56→20:25)
[2019-06-07] MEDS: atorvastatin 10mg tablet PO SCH (07:57)
[2019-06-07] MEDS: amiodarone 200mg tablet PO SCH ×3 (07:57→20:24)
[2019-06-07] MEDS: allopurinol 300 MG tablet PO SCH (07:57)
[2019-06-07] MEDS: vitamin D (cholecalciferol) 1,000 unit tablet PO SCH (07:57)
[2019-06-07] MEDS: sennosides/docusate sodium tablet PO SCH ×2 (07:57→20:24)
[2019-06-07] MEDS: pantoprazole 40mg Tablet.DR PO SCH (07:57)
[2019-06-07] MEDS: aspirin 81mg tablet.DR PO SCH (07:57)
[2019-06-07] MEDS: JUVEN Smoothie Arginine/Glut./Ca2+Bmb (Juven 19.3pkt) 240ml cup PO SCH ×3 (08:00→18:00)
[2019-06-07] MEDS ORDERED: magnesium 4gm in 100ml NS 100 ML IV ONE (08:40)
--- NOTE | 2019-06-07 12:19 | NUR ---
ELISSA ANDRADE INFORMED THAT PATIENT DOES NOT HAVE PERICARDIAL EFFUSION ON ECHO. NEW ORDER RECEIVED: ELIQUIS 5MG PO BID
[2019-06-07] MEDS: Melatonin 3mg tablet PO SCH (20:24)
[2019-06-07] MEDS: zolpidem 5mg tablet PO SCH (20:25)
[2019-06-07] MEDS: apixaban 5mg tablet PO SCH (20:25)
[2019-06-08] MEDS: amiodarone/D5 360MG/200ML BAG 200 ML IV SCH ×2 (00:07→05:09)
[2019-06-08 02:00] VITALS: BP 138/59
--- NOTE | 2019-06-08 05:05 | NUR ---
The patient converted to A Fib RVR at around 0410 but asymptomatic, britney the labs. while waiting for the lab result, the patient converted back to Sinus jasper. Charge Nurse-Elizabeth aware of the EKG changes.
[2019-06-08 05:40] LABS: ALBUMIN 2.9 G/DL (3.4-5.0); ANION GAP 9 (8-16); BLOOD UREA NITROGEN 8 MG/DL (7-18); BUN/CREATININE RATIO 9.8 (5.4-32.0); CALCIUM 8.3 MG/DL (8.5-10.1); CHLORIDE 98 MMOL/L (99-107); CREATININE 0.82 MG/DL (0.60-1.10); GLUCOSE 112 MG/DL (70-104); MAGNESIUM 1.9 MG/DL (1.5-2.4); POTASSIUM 3.9 MMOL/L (3.5-5.1); SODIUM 134 MMOL/L (135-145); TOTAL CARBON DIOXIDE 27.4 MMOL/L (24-32); eGFR > 90 ML/MIN
[2019-06-08 06:00] VITALS: BP 149/50
--- NOTE | 2019-06-08 06:40 | NUR ---
Problems reprioritized. Patient report given Pat-RN, questions answered & plan of care reviewed with .
[2019-06-08] MEDS: JUVEN Smoothie Arginine/Glut./Ca2+Bmb (Juven 19.3pkt) 240ml cup PO SCH ×3 (08:00→18:00)
--- NOTE | 2019-06-08 08:30 | NUR ---
PATIENT DENIES SOB, NAUSEA , AND CHEST PAIN. HEART RHYTHM CHANGED FROM SR TO ATRIAL FIB, CONTROLLED RATE. ADAM BOWERS INTO SEE PATIENT AT THIS TIME AND IS AWARE OF HEART RATE AND RHYTHM CHANGE. MAG AND K WATERS. Addendum: 06/08/19 at 1533 by Teresa Farah RN Amended: Links added.
[2019-06-08] MEDS: atorvastatin 10mg tablet PO SCH (09:02)
[2019-06-08] MEDS: sennosides/docusate sodium tablet PO SCH ×2 (09:02→21:56)
[2019-06-08] MEDS: amiodarone 200mg tablet PO SCH ×3 (09:03→22:01)
[2019-06-08] MEDS: vitamin D (cholecalciferol) 1,000 unit tablet PO SCH (09:03)
[2019-06-08] MEDS: metoprolol tartrate 50mg tablet PO SCH ×2 (09:03→20:00)
[2019-06-08] MEDS: citalopram 20mg tablet PO SCH (09:03)
[2019-06-08] MEDS: apixaban 5mg tablet PO SCH ×2 (09:03→21:56)
[2019-06-08] MEDS: aspirin 81mg tablet.DR PO SCH (09:04)
[2019-06-08] MEDS: losartan 25mg tablet PO SCH (09:04)
[2019-06-08] MEDS: magnesium 4gm in 100ml NS 100 ML IV PRN (09:24)
[2019-06-08] MEDS: allopurinol 300 MG tablet PO SCH (09:24)
[2019-06-08] MEDS: pantoprazole 40mg Tablet.DR PO SCH (09:24)
[2019-06-08] MEDS: potassium Cl 20 mEq SR tablet PO PRN (09:24)
[2019-06-08 11:00] VITALS: BP 149/50
[2019-06-08 15:00] VITALS: BP 142/66
[2019-06-08 18:00] VITALS: BP 177/66
--- NOTE | 2019-06-08 18:00 | NUR ---
PATIENT HEART RHYTHM THIS AM STARTED SR, THEN CHANGED TO A FIB, THEN RHYTHM CHANGED TO SINUS RANI FOR THE REST OF THE SHIFT. DENIED C/P, SOB, AND ,OR, NAUSEA.REPORTED OFF TO WEB DESIGNER DEVELOPER RN. HOB UP CALL LIGHT IN REACH. Addendum: 06/08/19 at 1852 by Teresa Farah RN Amended: Links added.
--- NOTE | 2019-06-08 18:00 | NUR ---
Patient in room MED 311. I have received report from Yessenia ORTEGA and had the opportunity to ask questions and assume patient care.
[2019-06-08 22:00] VITALS: BP 157/72
[2019-06-08] MEDS: Melatonin 3mg tablet PO SCH (22:01)
[2019-06-08] MEDS: zolpidem 5mg tablet PO SCH (22:01)
[2019-06-09 02:00] VITALS: BP 151/61
--- NOTE | 2019-06-09 04:43 | NUR ---
Pt converted to A-Fib with HR in 150s
--- NOTE | 2019-06-09 05:34 | NUR ---
Informed Olegario Jarvis that pt converted back to A-Fib, electrolyte replacements are ordered
[2019-06-09 06:00] VITALS: BP 145/79
[2019-06-09 06:04] LABS: ALBUMIN 2.9 G/DL (3.4-5.0); ANION GAP 7 (8-16); BLOOD UREA NITROGEN 14 MG/DL (7-18); BUN/CREATININE RATIO 16.7 (5.4-32.0); CALCIUM 8.2 MG/DL (8.5-10.1); CHLORIDE 99 MMOL/L (99-107); CREATININE 0.84 MG/DL (0.60-1.10); GLUCOSE 108 MG/DL (70-104); MAGNESIUM 1.8 MG/DL (1.5-2.4); SODIUM 133 MMOL/L (135-145); TOTAL CARBON DIOXIDE 27.5 MMOL/L (24-32); eGFR 89 ML/MIN
--- NOTE | 2019-06-09 06:28 | NUR ---
Problems reprioritized. Patient report given, questions answered & plan of care reviewed with Elena ORTEGA.
--- NOTE | 2019-06-09 06:30 | NUR ---
Patient in room MED 311. I have received report from Shereen ORTEGA and had the opportunity to ask questions and assume patient care.
[2019-06-09] MEDS: magnesium 4gm in 100ml NS 100 ML IV PRN (07:42)
[2019-06-09] MEDS: allopurinol 300 MG tablet PO SCH (07:47)
[2019-06-09] MEDS: amiodarone 200mg tablet PO SCH ×3 (07:47→21:22)
[2019-06-09] MEDS: pantoprazole 40mg Tablet.DR PO SCH (07:47)
[2019-06-09] MEDS: atorvastatin 10mg tablet PO SCH (07:47)
[2019-06-09] MEDS: aspirin 81mg tablet.DR PO SCH (07:47)
[2019-06-09] MEDS: losartan 25mg tablet PO SCH (07:47)
[2019-06-09] MEDS: sennosides/docusate sodium tablet PO SCH ×2 (07:48→21:16)
[2019-06-09] MEDS: metoprolol tartrate 50mg tablet PO SCH ×2 (07:48→20:00)
[2019-06-09] MEDS: citalopram 20mg tablet PO SCH (07:48)
[2019-06-09] MEDS: vitamin D (cholecalciferol) 1,000 unit tablet PO SCH (07:48)
[2019-06-09] MEDS: apixaban 5mg tablet PO SCH ×2 (07:48→21:16)
[2019-06-09] MEDS: potassium Cl 20 mEq SR tablet PO PRN (07:58)
[2019-06-09] MEDS: JUVEN Smoothie Arginine/Glut./Ca2+Bmb (Juven 19.3pkt) 240ml cup PO SCH ×2 (08:00→18:00)
[2019-06-09] MEDS ORDERED: magnesium 4gm in 100ml NS 100 ML IV ONE (09:55)
[2019-06-09 11:00] VITALS: BP 142/63
[2019-06-09 15:00] VITALS: BP 146/61
[2019-06-09 18:00] VITALS: BP 154/65
--- NOTE | 2019-06-09 18:00 | NUR ---
Patient in room MED 311. I have received report from Elena ORTEGA and had the opportunity to ask questions and assume patient care.
--- NOTE | 2019-06-09 19:00 | NUR ---
Spoke with Kyle Parker RN regarding 1300 med pass, states that medication was given but med label did not scan.
[2019-06-09] MEDS: zolpidem 5mg tablet PO SCH (21:15)
[2019-06-09] MEDS: Melatonin 3mg tablet PO SCH (21:16)
--- NOTE | 2019-06-09 21:26 | NUR ---
Lopressor held due to patient HR at 62bpm. Will reassess later.
[2019-06-09 22:00] VITALS: BP 165/74
[2019-06-10] VITALS (8 sets, daily range): BP systolic 136–179; BP diastolic 66–95
[2019-06-10 05:26] LABS: ALBUMIN 2.9 G/DL (3.4-5.0); ANION GAP 8 (8-16); BLOOD UREA NITROGEN 10 MG/DL (7-18); BUN/CREATININE RATIO 11.6 (5.4-32.0); CALCIUM 8.1 MG/DL (8.5-10.1); CHLORIDE 98 MMOL/L (99-107); CREATININE 0.86 MG/DL (0.60-1.10); GLUCOSE 107 MG/DL (70-104); MAGNESIUM 1.9 MG/DL (1.5-2.4); SODIUM 134 MMOL/L (135-145); eGFR 87 ML/MIN
--- NOTE | 2019-06-10 06:15 | NUR ---
Problems reprioritized. Patient report given by Mariluz Larsen RN, questions answered & plan of care reviewed with Sharee ORTEGA.
--- NOTE | 2019-06-10 07:30 | NUR ---
AT O600 THIS AM RECEIVED REPORT ON PATIENT. PATIENT AT THAT TIME WAS SR WITH FIRST DEGREE BLOCK AND BUNDLE BRANCH. PATIENT DENIES CHEST PAIN SOB AND OR NAUSEA. AT 0735 PATIENT HEART RHYTHM CHANGED TO ATRIAL FIB. FOUR GRAMS OF MAG IV REPLACEMENT STARTED. ADAM BOWERS AT NURSES STATION,AWARE OF PATIENT'S CHANGE OF HEART RHYTHM, AND ALSO APPRISED OF PATIENT'S ELEVATED SYSTOLIC B/P THROUGHOUT THE MECHANICAL FACILITIES TECHNICIAN AND THIS AM; ORDERS RECEIVED AND NOTED. Addendum: 06/10/19 at 2001 by Teresa Farah RN Amended: Links added.
[2019-06-10] MEDS: magnesium 4gm in 100ml NS 100 ML IV PRN (07:31)
[2019-06-10] MEDS ORDERED: losartan 50mg tablet PO ONE (07:45)
[2019-06-10] MEDS: aspirin 81mg tablet.DR PO SCH (07:49)
[2019-06-10] MEDS: citalopram 20mg tablet PO SCH (07:49)
[2019-06-10] MEDS: sennosides/docusate sodium tablet PO SCH ×2 (07:49→20:55)
[2019-06-10] MEDS: apixaban 5mg tablet PO SCH ×2 (07:49→20:55)
[2019-06-10] MEDS: vitamin D (cholecalciferol) 1,000 unit tablet PO SCH (07:50)
[2019-06-10] MEDS: allopurinol 300 MG tablet PO SCH (07:50)
[2019-06-10] MEDS: amiodarone 200mg tablet PO SCH ×3 (07:50→20:53)
[2019-06-10] MEDS: atorvastatin 10mg tablet PO SCH (07:50)
[2019-06-10] MEDS: pantoprazole 40mg Tablet.DR PO SCH (07:50)
[2019-06-10] MEDS: JUVEN Smoothie Arginine/Glut./Ca2+Bmb (Juven 19.3pkt) 240ml cup PO SCH ×2 (08:00→18:00)
[2019-06-10] MEDS ORDERED: losartan 50mg tablet PO SCH (08:00)
[2019-06-10] MEDS: metoprolol tartrate 50mg tablet PO SCH ×2 (08:10→20:54)
[2019-06-10] MEDS ORDERED: magnesium 4gm in 100ml NS 100 ML IV ONE (10:50)
--- NOTE | 2019-06-10 14:16 | NUR ---
Reassessment: Pt PO 75-100% avg meals w/ Boston ONS meeting needs. LBM 06/08. Heart healthy diet had been cancelled; BRANDON d/w RN regarding restarting per MD approval. No nurition concerns at this time. Will continue to monitor. Rec: 1. advance diet per MD to heart healthy 2. double protein BIDLD; Boston shakes BID 3. routine bowel care 4. wt per rx Addendum: 06/10/19 at [address] Amended: Links added.
--- NOTE | 2019-06-10 18:00 | NUR ---
Patient in room MED 311. I have received report from JORDAN Estes and had the opportunity to ask questions and assume patient care.
[2019-06-10] MEDS: Melatonin 3mg tablet PO SCH (20:52)
[2019-06-10] MEDS: losartan 50mg tablet PO SCH (20:53)
[2019-06-10] MEDS: zolpidem 5mg tablet PO SCH (20:54)
[2019-06-11 05:21] LABS: ALBUMIN 2.8 G/DL (3.4-5.0); ANION GAP 5 (8-16); BLOOD UREA NITROGEN 13 MG/DL (7-18); BUN/CREATININE RATIO 14.9 (5.4-32.0); CALCIUM 8.3 MG/DL (8.5-10.1); CHLORIDE 99 MMOL/L (99-107); CREATININE 0.87 MG/DL (0.60-1.10); GLUCOSE 101 MG/DL (70-104); MAGNESIUM 1.8 MG/DL (1.5-2.4); POTASSIUM 3.8 MMOL/L (3.5-5.1); SODIUM 134 MMOL/L (135-145); TOTAL CARBON DIOXIDE 29.7 MMOL/L (24-32); eGFR 86 ML/MIN
[2019-06-11 06:00] VITALS: BP 169/68
[2019-06-11] MEDS: magnesium 4gm in 100ml NS 100 ML IV PRN (06:02)
[2019-06-11] MEDS: potassium Cl 20 mEq SR tablet PO PRN (06:03)
--- NOTE | 2019-06-11 06:09 | NUR ---
Orientee documentation: I have reviewed and agree with all interventions, assessments performed and documented by JORDAN Rae.
--- NOTE | 2019-06-11 06:24 | NUR ---
Problems reprioritized. Patient report given, questions answered & plan of care reviewed with JORDAN Cordova . Patient stable at shift change
--- NOTE | 2019-06-11 07:00 | NUR ---
Patient in room MED 311. I have received report from Butch ORTEGA and had the opportunity to ask questions and assume patient care.
[2019-06-11] MEDS: pantoprazole 40mg Tablet.DR PO SCH (07:38)
[2019-06-11] MEDS: atorvastatin 10mg tablet PO SCH (07:38)
[2019-06-11] MEDS: aspirin 81mg tablet.DR PO SCH (07:39)
[2019-06-11] MEDS: apixaban 5mg tablet PO SCH ×2 (07:39→21:02)
[2019-06-11] MEDS: sennosides/docusate sodium tablet PO SCH ×2 (07:39→21:02)
[2019-06-11] MEDS: citalopram 20mg tablet PO SCH (07:40)
[2019-06-11] MEDS: metoprolol tartrate 50mg tablet PO SCH ×2 (07:40→21:04)
[2019-06-11] MEDS: allopurinol 300 MG tablet PO SCH (07:40)
[2019-06-11] MEDS: vitamin D (cholecalciferol) 1,000 unit tablet PO SCH (07:40)
[2019-06-11] MEDS: amiodarone 200mg tablet PO SCH ×3 (07:40→21:05)
[2019-06-11] MEDS: JUVEN Smoothie Arginine/Glut./Ca2+Bmb (Juven 19.3pkt) 240ml cup PO SCH ×2 (08:00→18:00)
[2019-06-11 11:00] VITALS: BP 145/70
[2019-06-11 15:00] VITALS: BP 162/72
[2019-06-11 18:00] VITALS: BP 172/76
--- NOTE | 2019-06-11 18:24 | NUR ---
Patient in room MED 311. I have received report from JORDAN Cordova and had the opportunity to ask questions and assume patient care.
[2019-06-11] MEDS: zolpidem 5mg tablet PO SCH (21:01)
[2019-06-11] MEDS: losartan 50mg tablet PO SCH (21:04)
[2019-06-11] MEDS: Melatonin 3mg tablet PO SCH (21:04)
[2019-06-11 22:00] VITALS: BP 157/70
--- NOTE | 2019-06-12 01:29 | NUR ---
Patient received 40MEQ of potassium and 4mg of MG during the day. Lab ordered for 06/12/19 at 0300.
[2019-06-12 06:00] VITALS: BP 171/84
--- NOTE | 2019-06-12 06:28 | NUR ---
Problems reprioritized. Patient report given, questions answered & plan of care reviewed with JORDAN Amaro. Patient stable at shift change
--- NOTE | 2019-06-12 06:33 | NUR ---
Orintee documentation: I have reviewed and agree with all interventions, assessments performed and documented by JORDAN Rae.
--- NOTE | 2019-06-12 06:35 | NUR ---
Patient in room MED 311. I have received report from JORDAN Rae and JORDAN Garcia and had the opportunity to ask questions and assume patient care.
[2019-06-12] MEDS: furosemide 20MG tablet PO SCH ×2 (08:00→09:09)
[2019-06-12] MEDS: JUVEN Smoothie Arginine/Glut./Ca2+Bmb (Juven 19.3pkt) 240ml cup PO SCH ×2 (08:00→13:19)
[2019-06-12 08:44] LABS: CHLORIDE 99 MMOL/L (99-107); MAGNESIUM 1.7 MG/DL (1.5-2.4); POTASSIUM 3.9 MMOL/L (3.5-5.1); SODIUM 134 MMOL/L (135-145)
[2019-06-12] MEDS ORDERED: APIX5TAB3 PO (08:44)
[2019-06-12] MEDS ORDERED: LOSA50TA64 PO (08:44)
[2019-06-12] MEDS ORDERED: ZOLP5TAB8 PO (08:44)
[2019-06-12] MEDS ORDERED: METO50TA16 PO (08:44)
[2019-06-12] MEDS ORDERED: AMIO200T61 PO (08:44)
[2019-06-12 08:54] LABS: ALBUMIN 3.1 G/DL (3.4-5.0); ANION GAP 7 (8-16); BLOOD UREA NITROGEN 12 MG/DL (7-18); CALCIUM 8.6 MG/DL (8.5-10.1); CREATININE 0.92 MG/DL (0.60-1.10); GLUCOSE 119 MG/DL (70-104); TOTAL CARBON DIOXIDE 28.5 MMOL/L (24-32); eGFR 80 ML/MIN
[2019-06-12] MEDS: pantoprazole 40mg Tablet.DR PO SCH (09:08)
[2019-06-12] MEDS: atorvastatin 10mg tablet PO SCH (09:08)
[2019-06-12] MEDS: potassium Cl 20 mEq SR tablet PO PRN (09:08)
[2019-06-12] MEDS: apixaban 5mg tablet PO SCH (09:09)
[2019-06-12] MEDS: citalopram 20mg tablet PO SCH (09:09)
[2019-06-12] MEDS: sennosides/docusate sodium tablet PO SCH (09:09)
[2019-06-12] MEDS: allopurinol 300 MG tablet PO SCH (09:09)
[2019-06-12] MEDS: metoprolol tartrate 50mg tablet PO SCH (09:11)
[2019-06-12] MEDS: aspirin 81mg tablet.DR PO SCH (09:11)
[2019-06-12] MEDS: magnesium 4gm in 100ml NS 100 ML IV PRN (09:11)
[2019-06-12] MEDS: vitamin D (cholecalciferol) 1,000 unit tablet PO SCH (09:11)
[2019-06-12] MEDS: amiodarone 200mg tablet PO SCH ×2 (09:11→13:19)
[2019-06-12 10:00] VITALS: BP 156/64
--- NOTE | 2019-06-12 15:51 | NUR ---
pt. discharged from facility at 1520. pt. was wheeled down to private vehicle accompanied by staff and his friend. pt. signed and understood all discharge paperwork. pt. IV was d/c intact. pt. new meds were called into [facility] on [address]. pt. left with all belongings including a walker that was ordered for him by case management.
== END 2019-06-12 15:15 | disposition home health service (06) | DRG 233 ==
LOC: ER 12:17 → ED HOLD 13:45 → MED 3N 15:15 → ICU 2S 05-28 09:03 → MED 3N 05-30 23:00
PROVIDERS: ADMIT Internal Medicine; ATTEND Internal Medicine
PROC: 4A023N7 Measurement of Cardiac Sampling and Pressure, Left Heart, Percutaneous Approach (ICD-10-PCS; 2019-05-28)
PROC: 06BY4ZZ Excision of Lower Vein, Percutaneous Endoscopic Approach (ICD-10-PCS; 2019-05-28)
PROC: B246ZZ4 Ultrasonography of Right and Left Heart, Transesophageal (ICD-10-PCS; 2019-05-28)
PROC: 02130Z3 Bypass Coronary Artery, Four or More Arteries from Coronary Artery, Open Approach (ICD-10-PCS; principal; 2019-05-28 06:40)
DX: I25.110 Atherosclerotic heart disease of native coronary artery with unstable angina pectoris (principal); I50.33 Acute on chronic diastolic (congestive) heart failure; I47.1 Supraventricular tachycardia; I35.1 Nonrheumatic aortic (valve) insufficiency; I48.91 Unspecified atrial fibrillation; Z68.35 Body mass index [BMI] 35.0-35.9, adult; I45.4 Nonspecific intraventricular block; I10 Essential (primary) hypertension; E78.5 Hyperlipidemia, unspecified; M1A.9XX0 Chronic gout, unspecified, without tophus (tophi)
CPT/HCPCS: 0232T; 93306; 93312; 93325; 93458; 99285; 36415; 36600; 71045; 71046; 76937; 78452; 80048; 80053; 80061; 81001; 82330; 82435; 82803; 82947; 82948; 83036; 83735; 83880; 84100; 84132; 84295; 84484; 85018; 85025; 85347; 85379; 85384; 85610; 85730; 86885; 86900; 86901; 86920; 87081; 93005; 93017; 93880; 93970; 94002; 94010; 94668; 97110; 97112; 97116; 97161; 97530; 97535; 99152; 99153; A4618; A4620; A6258; A6402; A6449; A7000; A7048; A9500; C1713; C1751; C1760; C1769; C9113; G0378; J0280; J0282; J0360; J0690; J1644; J1650; J1815; J1940; J2001; J2060; J2150; J2250; J2270; J2370; J2440; J2704; J2720; J2785; J2795; J2930; J3010; J3370; J3475; J3480; J3490; J7030; J7040; J7050; J7120; P9045; P9047; Q0163; Q9967